=== PATIENT | female | born 1930 | race Caucasian/White ===

== ENCOUNTER 2017-11-27 17:42 | Inpatient (IN) ==
[2017-11-27 19:04] LABS: Basophils % 0.3 %; Eosinophils # 0.1 K/mcL (0.0-0.6); Eosinophils % 0.6 %; Hemoglobin 10.3 g/dL (11.5-15.4); Immature Granulocytes % 0.5 % (0-4); Lymphocytes % 19.8 %; Mean Corpuscular HGB Conc 29.4 g/dL (31.6-35.5); Mean Corpuscular Hemoglobin 23.2 pg (28.0-33.3); Mean Corpuscular Volume 78.8 fL (83.0-100.0); Mean Platelet Volume 10.4 fL (9.4-12.4); Monocytes # 1.1 K/mcL (0.0-1.3); Platelet Count 262 K/mcL (140-400); Red Blood Count 4.44 M/mcL (3.82-4.97); Red Cell Distribution Width 16.8 % (11.5-14.5); Segmented Neutrophils % 67.8 %
[2017-11-27 19:14] LABS: Albumin 3.4 g/dL (3.5-5.7); Bilirubin,Total 0.6 mg/dL (0.3-1.0); Calcium 8.9 mg/dL (8.6-10.3); Potassium 3.5 mEq/L (3.5-5.1)
[2017-11-27 19:20] LABS: Globulin 3.3 g/dL (2.4-3.5); Total Protein 6.7 g/dL (6.4-8.9)
[2017-11-27] MEDS ORDERED: methylPREDNISolone 125 MG/2 ML VIAL IVP ONE (22:02)
[2017-11-27] MEDS ORDERED: Ipratropium/Albuterol Neb 3 ML IH ONE (22:02)
[2017-11-27] MEDS ORDERED: 0.9 % Sodium Chloride 1,000 ML IVC ONE (23:04)
[2017-11-28] MEDS ORDERED: Levofloxacin 750 MG/150 ML 750 MG/150 ML BAG IVPB ONE (00:14)
--- NOTE | 2017-11-28 00:36 | Emergency Department Note ---
Disposition Clinical Impression: Shortness of breath, Cavitary lesion of lung, Pneumonia, Hypoxia Disposition: Admitted As Inpatient Condition: Good Referrals: Dar Bailon MD [Primary Care Provider] - SOB HPI - General Chief Complaint: ED Shortness of Breath/Dyspnea Stated Complaint: JESENIA/weakness/FLU LIKE SYMPTOMS Time Seen by Provider: 11/27/17 21:56 Source: patient Limitations: no limitations Nursing Notes Reviewed: Yes Vital Signs Reviewed: Yes - History of Present Illness 87-year-old female presents emergency room for cough and shortness of breath and wheezing. Onset was a few days ago. She states she has been coughing up clear sputum. Has felt feverish at times with chills. No significant chest pain. She states she is fatigued and worn down. She denies any vomiting or diarrhea. No belly pain. She states all of her symptoms are and her respiratory system. She does have a history of COPD from smoking years ago but does not longer smoke. She has an occasional inhaler that she uses at home but does not require home oxygen or any home nebulizers. She denies any lower leg pain or swelling or any long travels recently. - Related Data Home Medications Medication Instructions Recorded Confirmed Biotin 10 mg PO 1300 08/20/15 05/27/16 Cholecalciferol (Vitamin D3) 2,000 unit PO 1300 08/20/15 05/27/16 [Vitamin D3] Cinnamon Bark [Cinnamon] 4,000 mg PO 1300 08/20/15 05/27/16 Diltiazem [Cardizem] 60 mg PO Q8HR 08/20/15 05/27/16 Docosahexanoic Acid [ Dha] 200 mg PO 1300 08/20/15 05/27/16 Furosemide [Lasix] 40 mg PO BID 08/20/15 05/27/16 GlipiZIDE XL (24 HR) [Glucotrol XL] 5 mg PO BID 08/20/15 05/27/16 Isosorbide MONOnitrate (24 HR) 30 mg PO 1300 08/20/15 05/27/16 [Imdur] Metformin HCl [Fortamet] 500 mg PO 1800 08/20/15 05/27/16 Metoprolol [Lopressor] 25 mg PO BID 08/20/15 05/27/16 Oxybutynin [Ditropan] 5 mg PO TID 08/20/15 05/27/16 Quinapril HCl [Accupril] 20 mg PO QAM 08/20/15 05/27/16 Simvastatin [Zocor] 20 mg PO HS 08/20/15 05/27/16 Warfarin [Coumadin] 6 mg PO SUMOTUSA 08/20/15 05/27/16 Albuterol Sulfate [Albuterol 2 puff IH Q4HR PRN 05/27/16 05/27/16 Inhaler] Calcium Polycarbophil [Fibercon] 1,250 mg PO 1800 05/27/16 05/27/16 Cyanocobalamin (Vitamin B-12) 1,000 mcg SL 1300 05/27/16 05/27/16 [Vitamin B-12] Warfarin [Coumadin] 3 mg PO WETHFR 05/27/16 05/27/16 Previous Rx's Medication Instructions Recorded Acetaminophen [Tylenol] 1 - 2 tab PO Q6HR PRN #90 tablet 05/27/16 Allergies Allergy/AdvReac Type Severity Reaction Status Date / Time codeine Allergy SHAKES Verified 11/27/17 18:03 doxycycline Allergy Rash Verified 11/27/17 18:03 Oxycodone Allergy Hives Verified 11/27/17 18:03 propoxyphene Allergy Hives Verified 11/27/17 18:03 [From Darvocet-N] acetaminophen [From Percocet] AdvReac lost voice Verified 11/27/17 18:03 Penicillins AdvReac Hives Verified 11/27/17 18:03 Sulfa (Sulfonamide AdvReac Shakiness Verified 11/27/17 18:03 Antibiotics) All systems ED: reviewed and negative except as stated. Constitutional: Reports: fever, chills Eyes: Reports: as per HPI ENT ED: Reports: as per HPI Cardiovascular: Reports: dyspnea on exertion Respiratory: Reports: cough, wheezes Gastrointestinal: Reports: as per HPI Genitourinary: Reports: as per HPI Musculoskeletal: Reports: as per HPI Integumentary: Reports: as per HPI Neurological: Reports: as per HPI Psychiatric: Reports: as per HPI Endocrine: Reports: as per HPI Hematological/Lymphatic: Reports: as per HPI Allergic/Immunologic: Reports: as per HPI Past Medical History - Past Medical History Medical history: Reports: aortic aneurysm, arthritis, atrial fibrillation, cancer, CHF, COPD, coronary artery disease, diabetes, hyperlipidemia, hypertension Surgical history: Reports: appendectomy, cataract (bilateral 01/05/2008), orthopedic, other, pacemaker/AICD (08/06/2007), VIVI/BSO (1967), other ( Tonsillectomy 1938), vascular surgery (AAA repair 08/20/2015) Psychiatric history: Reports: no psych history - Social History Smoking Status: Never smoker Smokeless Tobacco Status: No Alcohol use: Reports: none Drug use: Reports: none Physical Exam - General Limitations: no limitations General appearance: alert - Head Head exam: atraumatic, normocephalic - ENT ENT exam: normal exam, normal oropharynx - Chest Chest inspection: Present: normal inspection, symmetric chest wall rise - Respiratory Respiratory exam: Present: respiratory distress, wheezes (Significant bilateral wheezes heard throughout all lung sommer.) - Cardiovascular Cardiovascular exam: Present: regular rate, normal rhythm, normal heart sounds - Abdominal Exam Abdominal exam: Present: soft, Non-Tender - Extremities Exam Extremities exam: Present: normal inspection, full ROM, normal capillary refill. Absent: tenderness - Back Exam Back exam: Present: normal inspection - Neurological Exam Neurological exam: Present: alert, oriented X3 - Psychiatric Psychiatric exam: Present: normal affect, normal mood - Skin Skin exam: Present: warm, dry, intact Course Vital Signs Temperature 98.7 F 11/27/17 18:03 Pulse Rate 65 11/27/17 18:03 Respiratory Rate 20 11/27/17 18:03 Blood Pressure 106/54 11/27/17 18:03 O2 Sat by Pulse Oximetry 91 11/27/17 18:03 Temperature 98.7 F 11/27/17 18:03 Pulse Rate 60 11/28/17 00:30 Respiratory Rate 20 11/28/17 00:30 Blood Pressure 140/63 11/28/17 00:30 O2 Sat by Pulse Oximetry 94 11/28/17 00:30 Oxygen Delivery Oxygen Delivery Nasal Cannula Shortness of Breath/Dyspnea - [facility] Narrative Medical decision making narrative: Workup reveals a cavitary lesion in the right upper lobe. Could be infectious versus inflammatory versus neoplastic. Patient has bilateral groundglass opacities also seen throughout the lungs. I feel based on her presentation it is best to treat her for an infectious process at this point. She has no evidence of any pulmonary embolus on the CT. I have ordered IV Levaquin due to her allergies. She is getting IV fluids as well as DuoNeb treatments. She was also given Solu-Medrol. I did speak with the hospitalist who accepted the patient. - Medical Records Medical records reviewed: Yes I reviewed the patient's medical records. - Lab Data Lab results reviewed: Yes I reviewed the patient's lab results. Result diagrams: 11/27/17 18:48 11/27/17 18:48 Lab Results 11/27/17 11/27/17 11/27/17 Range/Units 18:48 18:48 18:48 WBC 10.3 (4.3-11.1) K/mcL RBC 4.44 (3.82-4.97) M/mcL Hgb 10.3 L (11.5-15.4) g/dL Hct 35.0 L (35.3-44.9) % MCV 78.8 L (83.0-100.0) fL MCH 23.2 L (28.0-33.3) pg MCHC 29.4 L (31.6-35.5) g/dL RDW 16.8 H (11.5-14.5) % Plt Count 262 (140-400) K/mcL MPV 10.4 (9.4-12.4) fL Immature Gran % 0.5 (0-4) % Seg Neutrophils % 67.8 % Lymphocytes % 19.8 % Monocytes % 11.0 % Eosinophils % 0.6 % Basophils % 0.3 % Neutrophils # 7.0 (1.6-8.9) K/mcL Lymphocytes # 2.0 (0.6-4.6) K/mcL Monocytes # 1.1 (0.0-1.3) K/mcL Eosinophils # 0.1 (0.0-0.6) K/mcL Basophils # 0.0 (0.0-0.2) K/mcL D-Dimer (0-500) ng/mLFEU Sodium 134 L (136-145) mEq/L Potassium 3.5 (3.5-5.1) mEq/L Chloride 96 L (98-107) mEq/L Carbon Dioxide 31 H (23-29) mEq/L BUN 16 (8-23) mg/dL Creatinine 1.19 (0.60-1.20) mg/dL Est GFR ( Amer) 52 L (> 60) Est GFR (Non-Af Amer) 43 L (> 60) BUN/Creatinine Ratio 13 (6-26) Glucose 79 (70-105) mg/dL Calculated Osmolality 278 L (280-300) Calcium 8.9 (8.6-10.3) mg/dL Total Bilirubin 0.6 (0.3-1.0) mg/dL AST 43 H (13-39) Units/L ALT 38 (7-52) Units/L Alkaline Phosphatase 84 (34-104) Units/L Troponin I 0.03 (< 0.04) ng/mL Serum Total Protein 6.7 (6.4-8.9) g/dL Albumin 3.4 L (3.5-5.7) g/dL Globulin 3.3 (2.4-3.5) g/dL Albumin/Globulin Ratio 1.0 L (1.1-2.2) 11/27/17 Range/Units 22:16 WBC (4.3-11.1) K/mcL RBC (3.82-4.97) M/mcL Hgb (11.5-15.4) g/dL Hct (35.3-44.9) % MCV (83.0-100.0) fL MCH (28.0-33.3) pg MCHC (31.6-35.5) g/dL RDW (11.5-14.5) % Plt Count (140-400) K/mcL MPV (9.4-12.4) fL Immature Gran % (0-4) % Seg Neutrophils % % Lymphocytes % % Monocytes % % Eosinophils % % Basophils % % Neutrophils # (1.6-8.9) K/mcL Lymphocytes # (0.6-4.6) K/mcL Monocytes # (0.0-1.3) K/mcL Eosinophils # (0.0-0.6) K/mcL Basophils # (0.0-0.2) K/mcL D-Dimer 1713 H (0-500) ng/mLFEU Sodium (136-145) mEq/L Potassium (3.5-5.1) mEq/L Chloride (98-107) mEq/L Carbon Dioxide (23-29) mEq/L BUN (8-23) mg/dL Creatinine (0.60-1.20) mg/dL Est GFR ( Amer) (> 60) Est GFR (Non-Af Amer) (> 60) BUN/Creatinine Ratio (6-26) Glucose (70-105) mg/dL Calculated Osmolality (280-300) Calcium (8.6-10.3) mg/dL Total Bilirubin (0.3-1.0) mg/dL AST (13-39) Units/L ALT (7-52) Units/L Alkaline Phosphatase (34-104) Units/L Troponin I (< 0.04) ng/mL Serum Total Protein (6.4-8.9) g/dL Albumin (3.5-5.7) g/dL Globulin (2.4-3.5) g/dL Albumin/Globulin Ratio (1.1-2.2) - Radiology Data Radiology results reviewed: Yes I reviewed the patient's radiology results. - EKG Data EKG attestation: Yes I reviewed and interpreted this EKG. EKG results narrative: EKG shows a rate of 74. No sinus rhythm. Normal axis. MI interval 224. QRS 89. QTC 392. Critical Care Time Critical Care Time: Yes Total Critical Care Time: 35 Attestation: Critical care time spent and medical management of the patient's hypoxia
[2017-11-28] MEDS ORDERED: Ipratropium/Albuterol Neb 3 ML IH ONE (01:17)
--- NOTE | 2017-11-28 01:24 | Internal Med History&Physical ---
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 for follow Qualifiers: Pneumonia type: due to unspecified organism Laterality: right Lung location: upper lobe of lung Qualified Code(s): J18.1 - Lobar pneumonia, unspecified organism (3) Shortness of breath Current visit: Yes Status: Acute Patient actively wheezing on exam with some rhonchi was started on DuoNeb and Solu-Medrol (4) Atrial fibrillation Current visit: No Status: Chronic Qualifiers: Atrial fibrillation type: paroxysmal Qualified Code(s): I48.0 - Paroxysmal atrial fibrillation (5) Diabetes mellitus Current visit: No Status: Chronic Chronic continue on sliding scale and resume home medication Qualifiers: Diabetes mellitus type: type 2 Diabetes mellitus complication status: with circulatory complication Diabetes mellitus complication detail: with other circulatory complications Diabetes mellitus vermin exterminator insulin use: unspecified vermin exterminator insulin use status Qualified Code(s): E11.59 - Type 2 diabetes mellitus with other circulatory complications (6) Essential (primary) hypertension Current visit: No Status: Chronic Chronic and well controlled Internal Medicine - H&P: HPI Chief complaint: cough and sob Admitted From: Emergency Dept Plans for Post Hospital Care: Home History of present illness: Ms. Mejía is a 87 year old female Patient with history of COPD, hypertension, diabetes, atrial fibrillation, pacemaker, CAD, high cholesterol, patient presents to emergency room with a few days of shortness of breath cough and wheezing with fever and chills and that generalized fatigue. CTA of the chest in the emergency room shows 6 mm cavitary lesion in the right upper lobe suggestive of cavitary pneumonia patient admitted; started on antibiotic will also consult sales representative door to door. On exam patient is had bilateral rhonchi and some wheezing Past Med Surg Social Fam HX - Past Medical History Medical history: aortic aneurysm, arthritis, atrial fibrillation, cancer, CHF, COPD, coronary artery disease, diabetes, hyperlipidemia, hypertension Psychiatric history: no psych history - Past Surgical History Surgical History: appendectomy, cataract (bilateral 01/05/2008), orthopedic, other, pacemaker/AICD (08/06/2007), VIVI/BSO (1967), other (Tonsillectomy 1938), vascular surgery (AAA repair 08/20/2015) - Social History Smoking Status: Never smoker Smokeless Tobacco Status: No Alcohol use: none Drug use: none - Family History Mother Hx Family Cardiac Disorders: Yes ([place]) Hx Family Respiratory Disorders: Yes (asthma) Hx Family Cancer: Yes (breast) Father Family Member Ethnicity: Non- Sister Hx Family Cancer: Yes (kidney cancer) Internal Medicine - H&P: Meds Biotin 10 mg PO 1300 08/20/15 [History] Cholecalciferol (Vitamin D3) [Vitamin D3] 2,000 unit PO 1300 08/20/15 [History] Cinnamon Bark [Cinnamon] 4,000 mg PO 1300 08/20/15 [History] Diltiazem [Cardizem] 60 mg PO Q8HR 08/20/15 [History] Docosahexanoic Acid [ Dha] 200 mg PO 1300 08/20/15 [History] Furosemide [Lasix] 40 mg PO BID 08/20/15 [History] GlipiZIDE XL (24 HR) [Glucotrol XL] 5 mg PO BID 08/20/15 [History] Isosorbide MONOnitrate (24 HR) [Imdur] 30 mg PO 1300 08/20/15 [History] Metformin HCl [Fortamet] 500 mg PO 1800 08/20/15 [History] Metoprolol [Lopressor] 25 mg PO BID 08/20/15 [History] Oxybutynin [Ditropan] 5 mg PO TID 08/20/15 [History] Quinapril HCl [Accupril] 20 mg PO QAM 08/20/15 [History] Simvastatin [Zocor] 20 mg PO HS 08/20/15 [History] Warfarin [Coumadin] 6 mg PO SUMOTUSA 08/20/15 [History] Acetaminophen [Tylenol] 1 - 2 tab PO Q6HR PRN #90 tablet 05/27/16 [Rx] Albuterol Sulfate [Albuterol Inhaler] 2 puff IH Q4HR PRN 05/27/16 [History] Calcium Polycarbophil [Fibercon] 1,250 mg PO 1800 05/27/16 [History] Cyanocobalamin (Vitamin B-12) [Vitamin B-12] 1,000 mcg SL 1300 05/27/16 [History ] Warfarin [Coumadin] 3 mg PO WETHFR 05/27/16 [History] 3 Allergy/AdvReac Type Severity Reaction Status Date / Time codeine Allergy SHAKES Verified 11/27/17 18:03 doxycycline Allergy Rash Verified 11/27/17 18:03 Oxycodone Allergy Hives Verified 11/27/17 18:03 propoxyphene Allergy Hives Verified 11/27/17 18:03 [From Darvocet-N] acetaminophen [From Percocet] AdvReac lost voice Verified 11/27/17 18:03 Penicillins AdvReac Hives Verified 11/27/17 18:03 Sulfa (Sulfonamide AdvReac Shakiness Verified 11/27/17 18:03 Antibiotics) All Systems PM: A 10-system review of systems was performed and is negative for pertinent findings except as documented above in the HPI. - Constitutional Constitutional: chills, fatigue, fever(s) - EENT Eyes: no change in vision, no discharge, no pain, no photophobia Ears: no ear discharge, no ear pain, no tinnitus Nose, mouth and throat: no dysphagia, no nasal discharge, no neck pain, no sore throat - Cardiovascular Cardiovascular ROS IM: dyspnea, dyspnea on exertion - Respiratory Respiratory: dyspnea, dyspnea on exertion, wheezing - Gastrointestinal Gastrointestinal: no abdominal pain, no diarrhea, no hematemesis, no hematochezia, no melena, no nausea, no vomiting - Genitourinary Genitourinary: no change in urinary stream, no dysuria, no flank pain, no hematuria - Constitutional Vitals: Temp Pulse Resp BP Pulse Ox 98.7 F 60 20 140/63 94 11/27/17 18:03 11/28/17 00:30 11/28/17 00:30 11/28/17 00:30 11/28/17 00:30 General appearance: Present: mild distress - Eye Eye exam: Present: PERRL, conjuntiva pink, sclera anicteric Pupils: Present: PERRL - Neck Neck exam general surgery: Present: supple, trachea midline. Absent: lymphadenopathy - Respiratory Respiratory exam: Present: rhonchi, wheezes - Cardiovascular Cardiovascular exam: Present: RRR, +S1, +S2. Absent: diastolic murmur, gallop, rubs, systolic murmur - GI/Abdominal GI/Abdominal exam: Present: normal bowel sounds, soft, no peritoneal signs. Absent: distended, tenderness Internal Med - H&P Results - Labs CBC & Chem 7: 11/27/17 18:48 11/27/17 18:48
[2017-11-28] MEDS ORDERED: 0.9 % Sodium Chloride 1,000 ML IVC SCH (01:30)
[2017-11-28] MEDS ORDERED: Acetaminophen 325 MG TABLET PO PRN (01:30)
[2017-11-28] MEDS ORDERED: Naloxone 0.4 MG/ML INJ IVP PRN (01:30)
[2017-11-28] MEDS ORDERED: traMADol 50 MG TABLET PO PRN (01:30)
[2017-11-28] MEDS ORDERED: Ipratropium/Albuterol Neb 3 ML IH PRN (01:35)
[2017-11-28] MEDS ORDERED: D5% in Water 1,000 ML IVC PRN (01:36)
[2017-11-28] MEDS ORDERED: *HR* Dextrose 50 % in Water (Syg) 50 ML SYRINGE IVP PRN (01:36)
[2017-11-28] MEDS ORDERED: Dextrose Gel 15 GM/37.5 ML TUBE PO PRN ×2 (01:36)
[2017-11-28] MEDS: Ipratropium/Albuterol Neb 3 ML IH SCH ×6 (04:24→23:47)
[2017-11-28 04:31] LABS: Hematocrit 30.6 % (35.3-44.9); Mean Corpuscular HGB Conc 29.4 g/dL (31.6-35.5); Mean Corpuscular Hemoglobin 23.2 pg (28.0-33.3); Mean Corpuscular Volume 78.9 fL (83.0-100.0); Platelet Count 207 K/mcL (140-400); Red Blood Count 3.88 M/mcL (3.82-4.97); Red Cell Distribution Width 16.8 % (11.5-14.5)
[2017-11-28] MEDS: *HR* Enoxaparin 40 MG/0.4 ML SYRINGE SQ SCH (05:24)
[2017-11-28] MEDS ORDERED: MethylPREDNISolone 40 MG/ML VIAL IVP SCH (06:00)
[2017-11-28] MEDS ORDERED: Meropenem 1,000 MG in Water for inj. (sterile) 20 ML 10 ML IVP SCH (06:00)
[2017-11-28] MEDS ORDERED: Insulin LISPRO 300 UNITS/3 ML VIAL SQ SCH ×2 (07:30→21:00)
[2017-11-28] MEDS: *HR* GlipiZIDE XL (24 HR) 2.5 MG TABLET PO SCH ×2 (08:07→21:22)
[2017-11-28] MEDS: Insulin LISPRO 300 UNITS/3 ML VIAL SQ SCH ×3 (11:55→21:23)
[2017-11-28] MEDS: Isosorbide MONOnitrate (24 HR) 30 MG TAB.ER.24H PO SCH (12:02)
[2017-11-28] MEDS: Cholecalciferol (D-3) 1,000 UNIT TABLET PO SCH (12:02)
--- NOTE | 2017-11-28 12:43 | Pulmonology Consult Note ---
Date of Encounter: 11/28/17 Time of Encounter: 12:00 Assessment and Plan (1) COPD with exacerbation Current Visit: Yes Status: Acute She has history of COPD and I suspect this is a COPD exacerbation and she is on bronchodilator and I will add Symbicort to the treatment as well as increase her systemic steroid since patient still hypoxic and symptomatic. She will need outpatient follow-up. Deep oxygen saturation around 92%. (2) Cavitary lesion of lung Current Visit: Yes Status: Acute I have reviewed CT chest personally and cavitary nodule is very small obviously infection versus noninfectious etiologies in the differential diagnosis however clinically she is not stable for any bronchoscopy and also it is very small to biopsy. A follow-up CT chest is necessary in outpatient in 6-8 weeks. Patient has multiple allergies and discussed with the pharmacist regarding appropriate antibiotics. (3) Hypoxia Current Visit: Yes Status: Acute Patient on oxygen and titrate FiO2 to keep SPO2 around 92% Thank you for consultation we will follow-up. History of Present Illness Consult date: 11/28/17 Requesting physician: Hailey Wray Reason for consult: abnormal CXR/CT, other (Lung nodule) Chief complaint: Shortness of breath History of present illness: 7 very pleasant 87-year-old female with known history of COPD and remote history of smoking and she quit smoking more than 25 years ago and she is not using home oxygen but she is using rescue inhalers and she denies any history of TB in the past or a contact with TB patients. Patient stated that she is been having worsening shortness of breath for a few days with cough but not been able to bring up her sputum with some fever and chills and generalized fatigue. CT chest was done with a cavitary nodule and pulmonary consult with for that reason. Patient denies any other symptoms at this time. Past Med Surg Social Fam HX - Past Medical History Medical history: aortic aneurysm, arthritis, atrial fibrillation, CHF, COPD, coronary artery disease, diabetes, hyperlipidemia, hypertension Psychiatric history: no psych history - Past Surgical History Surgical History: cataract, hysterectomy, orthopedic, other, pacemaker/AICD, VIVI /BSO, other, vascular surgery - Social History Smoking Status: Former smoker Smokeless Tobacco Status: No Alcohol use: none Drug use: none - Family History Mother Age at : 63 Hx Family Cardiac Disorders: Yes ([place]) Hx Family Respiratory Disorders: Yes (asthma) Hx Family Cancer: Yes (breast) Father Family Member Ethnicity: Non- Cause of : 39 Sister Hx Family Cancer: Yes (kidney cancer) Medications and Allergies Biotin 10 mg PO 1300 08/20/15 [History] Cholecalciferol (Vitamin D3) [Vitamin D3] 2,000 unit PO 1300 08/20/15 [History] Cinnamon Bark [Cinnamon] 4,000 mg PO 1300 08/20/15 [History] Diltiazem [Cardizem] 60 mg PO Q8HR 08/20/15 [History] Furosemide [Lasix] 40 mg PO BID 08/20/15 [History] GlipiZIDE XL (24 HR) [Glucotrol XL] 5 mg PO BID 08/20/15 [History] Isosorbide MONOnitrate (24 HR) [Imdur] 30 mg PO 1300 08/20/15 [History] Oxybutynin [Ditropan] 5 mg PO TID 08/20/15 [History] Simvastatin [Zocor] 20 mg PO HS 08/20/15 [History] Warfarin [Coumadin] 6 mg PO SUMOTUSA 08/20/15 [History] Acetaminophen [Tylenol] 1 - 2 tab PO Q6HR PRN #90 tablet 05/27/16 [Rx] Albuterol Sulfate [Albuterol Inhaler] 2 puff IH Q4HR PRN 05/27/16 [History] Calcium Polycarbophil [Fibercon] 1,250 mg PO 1800 05/27/16 [History] Cyanocobalamin (Vitamin B-12) [Vitamin B-12] 1,000 mcg SL 1300 05/27/16 [History ] Warfarin [Coumadin] 3 mg PO WETHFR 05/27/16 [History] Metformin HCl [Metformin HCl ER] 500 mg PO DAILY 11/28/17 [History] Metoprolol [Lopressor] 50 mg PO BID 11/28/17 [History] 3 Allergy/AdvReac Type Severity Reaction Status Date / Time doxycycline Allergy Rash Verified 11/27/17 18:03 Oxycodone Allergy Hives Verified 11/27/17 18:03 propoxyphene Allergy Hives Verified 11/27/17 18:03 [From Darvocet-N] acetaminophen [From Percocet] AdvReac lost voice Verified 11/27/17 18:03 codeine AdvReac SHAKES Verified 11/28/17 07:19 Penicillins AdvReac Hives Verified 11/27/17 18:03 Sulfa (Sulfonamide AdvReac Shakiness Verified 11/27/17 18:03 Antibiotics) All Systems: A 10-system review of systems was performed and is negative for pertinent findings except as documented above in the HPI. Physical Examination Vital Signs: Vital Signs, Last 4 Hours Temp Pulse Resp BP Pulse Ox 11/28/17 12:04 98.1 F 139 16 102/51 92 11/28/17 11:36 18 94 General appearance: appears uncomfortable Eyes: nonicteric ENT: oropharynx dry Mallampati (class): 2 Neck: supple Effort: mildly labored Inspection: hyperextended Auscultation: bilateral: wheezes Percussion: bilateral: not dull Cardiovascular: irregular rhythm Gastrointestinal: normoactive bowel sounds, non-distended Extremities: no cyanosis normal mental status, non-focal exam mood appropriate Results - Laboratory Findings CBC and BMP: 11/28/17 03:37 11/27/17 18:48 PT/INR, D-dimer D-Dimer 1713 ng/mLFEU (0-500) H 11/27/17 22:16 Abnormal lab findings: Abnormal lab results Hgb 9.0 g/dL (11.5-15.4) L 11/28/17 03:37 Hct 30.6 % (35.3-44.9) L 11/28/17 03:37 MCV 78.9 fL (83.0-100.0) L 11/28/17 03:37 MCH 23.2 pg (28.0-33.3) L 11/28/17 03:37 MCHC 29.4 g/dL (31.6-35.5) L 11/28/17 03:37 RDW 16.8 % (11.5-14.5) H 11/28/17 03:37 D-Dimer 1713 ng/mLFEU (0-500) H 11/27/17 22:16 Sodium 134 mEq/L (136-145) L 11/27/17 18:48 Chloride 96 mEq/L (98-107) L 11/27/17 18:48 Carbon Dioxide 31 mEq/L (23-29) H 11/27/17 18:48 Est GFR ( Amer) 52 (> 60) L 11/27/17 18:48 Est GFR (Non-Af Amer) 43 (> 60) L 11/27/17 18:48 Calculated Osmolality 278 (280-300) L 11/27/17 18:48 AST 43 Units/L (13-39) H 11/27/17 18:48 Albumin 3.4 g/dL (3.5-5.7) L 11/27/17 18:48 Albumin/Globulin Ratio 1.0 (1.1-2.2) L 11/27/17 18:48 - Diagnostic Findings CT scan - chest: report reviewed, image reviewed - Clinical Findings Intake & Output: Intake & Output 11/27/17 11/28/17 11/28/17 23:59 07:59 15:59 Intake Total 25 / 25 Output Total 350 / 350 Balance -350 / -350 25 / 25 Weight 70.8 kg Consult Discharge Plan - Plan Referrals: Dar Bailon MD [Primary Care Provider] -
[2017-11-28] MEDS ORDERED: BIOTIN 10 MG PO SCH (13:00)
[2017-11-28] MEDS: methylPREDNISolone 125 MG/2 ML VIAL IVP SCH ×2 (14:36→21:22)
[2017-11-28] MEDS: Budesonide/Formoterol 160/4.5 MDI IH SCH ×2 (15:56→20:32)
[2017-11-28] MEDS: Cefepime HCl 1,000 MG in Water for inj. (sterile) 20 ML 10 ML IVP SCH (17:54)
[2017-11-28] MEDS ORDERED: Cefepime HCl 1,000 MG in Water for inj. (sterile) 10 ML IVP SCH (18:00)
--- NOTE | 2017-11-28 18:31 | Electrocardiograph Report ---
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
--- NOTE | 2017-11-28 19:17 | Event Note ---
Date of Encounter: 11/29/17 Time of Encounter: 11:00 Will continue duo nebs and Solu-Medrol for pneumonia. Continue supplemental oxygenation
[2017-11-29] MEDS: Ipratropium/Albuterol Neb 3 ML IH SCH ×6 (04:20→23:32)
[2017-11-29] MEDS: methylPREDNISolone 125 MG/2 ML VIAL IVP SCH ×3 (05:39→19:43)
[2017-11-29] MEDS: *HR* Enoxaparin 40 MG/0.4 ML SYRINGE SQ SCH (05:40)
[2017-11-29] MEDS: Cefepime HCl 1,000 MG in Water for inj. (sterile) 20 ML 10 ML IVP SCH (05:40)
[2017-11-29] MEDS: Ondansetron 4 MG/2 ML VIAL IVP PRN (07:35)
[2017-11-29] MEDS: Budesonide/Formoterol 160/4.5 MDI IH SCH ×2 (07:54→19:45)
[2017-11-29] MEDS ORDERED: Cefepime HCl 1,000 MG in Water for inj. (sterile) 20 ML 10 ML IVP ONE (08:26)
[2017-11-29] MEDS: *HR* GlipiZIDE XL (24 HR) 2.5 MG TABLET PO SCH (08:34)
[2017-11-29] MEDS: Insulin LISPRO 300 UNITS/3 ML VIAL SQ SCH ×3 (08:35→17:30)
[2017-11-29 08:57] LABS: BUN/Creatinine Ratio 21 (6-26); Blood Urea Nitrogen 21 mg/dL (8-23); Calcium 9.4 mg/dL (8.6-10.3); Carbon Dioxide 23 mEq/L (23-29); Chloride 89 mEq/L (98-107); Glucose 303 mg/dL (70-105); Osmolality,Calculated 272 (280-300); Potassium 3.2 mEq/L (3.5-5.1); Sodium 124 mEq/L (136-145); eGFR For African Americans > 60 (> 60); eGFR For Non-African Americans 52 (> 60)
[2017-11-29] MEDS ORDERED: Ibuprofen 400 MG TABLET PO PRN (09:00)
[2017-11-29 09:33] LABS: Hematocrit 31.9 % (35.3-44.9); Hemoglobin 9.5 g/dL (11.5-15.4); Lymphocytes % 5.6 %; Mean Corpuscular HGB Conc 29.8 g/dL (31.6-35.5); Mean Corpuscular Hemoglobin 22.8 pg (28.0-33.3); Mean Corpuscular Volume 76.7 fL (83.0-100.0); Mean Platelet Volume 11.1 fL (9.4-12.4); Monocytes % 2.7 %; Platelet Count 274 K/mcL (140-400); Red Blood Count 4.16 M/mcL (3.82-4.97); Segmented Neutrophils % 90.6 %
[2017-11-29 09:34] LABS: Basophils % 0.1 %; Lymphocytes # 1.1 K/mcL (0.6-4.6); Monocytes # 0.5 K/mcL (0.0-1.3)
[2017-11-29 09:44] LABS: Neutrophils # 17.7 K/mcL (1.6-8.9)
[2017-11-29] MEDS: Isosorbide MONOnitrate (24 HR) 30 MG TAB.ER.24H PO SCH (12:16)
[2017-11-29] MEDS: Cholecalciferol (D-3) 1,000 UNIT TABLET PO SCH (12:16)
[2017-11-29] MEDS: dilTIAZem HCl 60 MG TABLET PO SCH ×2 (12:26→17:30)
[2017-11-29 12:40] LABS: ABG Base Excess 4 mEq/L (-2 to 3); ABG HCO3 28 mEq/L (21-27); ABG Oxygen Saturation 93 % (95-98); ABG PCO2 36 mmHg (35-45); ABG PO2 62 mmHg (85-104); ABG TCO2 29 mEq/L (20-26)
[2017-11-29 14:46] LABS: INR 3.8; Prothrombin Time 41.9 Seconds (9.4-12.1)
[2017-11-29 15:33] LABS: ABG Base Excess 6 mEq/L (-2 to 3); ABG HCO3 28 mEq/L (21-27); ABG Oxygen Saturation 100 % (95-98); ABG PCO2 34 mmHg (35-45); ABG PH 7.53 pH Units (7.32-7.45); ABG PO2 155 mmHg (85-104); ABG TCO2 30 mEq/L (20-26); Blood Gas PEEP 6 cm H2O
[2017-11-29] MEDS ORDERED: Furosemide 40 MG/4 ML VIAL IVP ONE (16:36)
--- NOTE | 2017-11-29 17:07 | Internal Med Progress Note ---
Date of Encounter: 11/29/17 Time of Encounter: 11:00 - Assessment and plan (1) Acute respiratory failure with hypoxia Current Visit: Yes Status: Acute Assessment and plan: -Patient requiring supplemental oxygen and today was placed on BiPAP -Suspect secondary to COPD exacerbation secondary to bacterial infectious process -Continue supplemental oxygen and management of COPD exacerbation as below (2) COPD with exacerbation Current Visit: Yes Status: Acute Assessment and plan: -Suspect secondary to bacterial etiology; pneumonia is not ruled out -Patient now febrile with MAXIMUM TEMPERATURE of 102 overnight and now with markedly worsen leukocytosis -Will continue IV Solu-Medrol in addition to IV cefepime; infectious disease consulted and appreciate recommendations (3) Cavitary lesion of lung Current Visit: Yes Status: Acute Assessment and plan: -CT of the chest showed 6 mm cavitary lesion right upper lobe and patchy bilateral ground-glass opacities. -Pulmonology following and appreciate recommendations (4) Diabetes mellitus Current Visit: No Status: Chronic Assessment and plan: -Blood glucose slightly elevated; continue Humalog Qualifiers: Diabetes mellitus type: type 2 Diabetes mellitus complication status: with circulatory complication Diabetes mellitus complication detail: with other circulatory complications Diabetes mellitus chcf insulin use: unspecified terminal operations manager insulin use status Qualified Code(s): E11.59 - Type 2 diabetes mellitus with other circulatory complications (5) Essential (primary) hypertension Current Visit: No Status: Chronic Assessment and plan: -Controlled; continue Cardizem (6) DVT prophylaxis Current Visit: Yes Status: Acute Assessment and plan: Subcutaneous heparin - Subjective Interval history: Patient with respiratory distress this morning and was placed on BiPAP In addition patient also reported having a MAXIMUM TEMPERATURE of 102 this morning and now with markedly worsening leukocytosis - Constitutional Vitals: Temp Pulse Resp BP Pulse Ox 97.3 F L 73 18 132/64 90 11/29/17 16:30 11/29/17 16:30 11/29/17 16:39 11/29/17 16:30 11/29/17 16:39 General appearance: Present: mild distress, A&O X 3, no acute distress - Respiratory Respiratory exam: Present: accessory muscle use, CTAB, respiratory distress, rhonchi. Absent: wheezes - Cardiovascular Cardiovascular exam: Present: RRR, +S1, +S2. Absent: diastolic murmur, gallop, rubs, systolic murmur Internal Medicine: Result - Labs CBC & Chem 7: 11/29/17 08:24 11/29/17 08:24 Labs: Short CBC 11/29/17 Range/Units 08:24 WBC 19.5 H D (4.3-11.1) K/mcL Hgb 9.5 L (11.5-15.4) g/dL Hct 31.9 L (35.3-44.9) % Plt Count 274 (140-400) K/mcL Neutrophils # 17.7 H (1.6-8.9) K/mcL BMP 11/29/17 08:24 Sodium 124 L Potassium 3.2 L Chloride 89 L Carbon Dioxide 23 BUN 21 Creatinine 1.00 Glucose 303 H Calcium 9.4 - ABG Interpretation ABG results: ABG ABG pH 7.53 pH Units (7.32-7.45) H 11/29/17 15:25 ABG pCO2 34 mmHg (35-45) L 11/29/17 15:25 ABG pO2 155 mmHg (85-104) H D 11/29/17 15:25 ABG O2 Saturation 100 % (95-98) H 11/29/17 15:25 PT/INR, D-dimer PT 41.9 Seconds (9.4-12.1) H 11/29/17 14:21 D-Dimer 1713 ng/mLFEU (0-500) H 11/27/17 22:16 Consult Discharge Plan - Plan Referrals: Dar Bailon MD [Primary Care Provider] - 12/05/17 3:00 pm (Please follow up as schedule...)
[2017-11-29] MEDS ORDERED: Warfarin perPT PO PRN (18:00)
[2017-11-29] MEDS: Cefepime HCl 2,000 MG in Water for inj. (sterile) 20 ML 20 ML IVP SCH (19:42)
[2017-11-30] MEDS: dilTIAZem HCl 60 MG TABLET PO SCH ×4 (00:13→23:50)
[2017-11-30] MEDS: Insulin LISPRO 300 UNITS/3 ML VIAL SQ SCH ×5 (00:14→20:57)
[2017-11-30] MEDS: Ipratropium/Albuterol Neb 3 ML IH SCH ×6 (03:31→23:08)
[2017-11-30] MEDS: methylPREDNISolone 125 MG/2 ML VIAL IVP SCH ×3 (04:37→20:12)
[2017-11-30 05:22] LABS: INR 3.6; Prothrombin Time 39.6 Seconds (9.4-12.1)
[2017-11-30] MEDS ORDERED: *HR* Enoxaparin 30 MG/0.3 ML SYRINGE SQ SCH (06:00)
[2017-11-30] MEDS: Budesonide/Formoterol 160/4.5 MDI IH SCH ×2 (07:57→19:44)
[2017-11-30] MEDS: Cefepime HCl 2,000 MG in Water for inj. (sterile) 20 ML 20 ML IVP SCH ×2 (08:33→20:11)
--- NOTE | 2017-11-30 09:50 | Pulmonology Progress Note ---
Date of Encounter: 11/30/17 Time of Encounter: 08:00 Assessment and Plan (1) COPD with exacerbation Current Visit: Yes Status: Acute Patient is complaining of mostly nasal congestion which is making good difficult for her to breathe and nasal spray might be helpful. I still suspect there might be some underlying cardiac reasons mainly because patient has primarily respiratory alkalosis on her ABG and also diabetic control on her glucose since her sodium is artificially lower then normal because of hyperglycemia. Needs to replace electrolyte and diuresis as tolerated. Mucomyst might be helpful as well (2) Cavitary lesion of lung Current Visit: Yes Status: Acute Consider infectious disease consultation. (3) Hypoxia Current Visit: Yes Status: Acute Subjective Principal diagnosis: Shortness of breath Interval history: Patient feeling nasal congestion and still have difficulty to bring up sputum. Objective PUL Vital signs: Last Vital Signs Temp 97.6 F 11/30/17 07:28 Pulse 88 11/30/17 07:28 Resp 20 11/30/17 07:59 BP 135/52 11/30/17 07:28 Pulse Ox 90 11/30/17 07:59 General appearance: appears uncomfortable Eyes: nonicteric ENT: oropharynx moist Neck: supple, no lymphadenopathy Effort: mildly labored Auscultation: bilateral: rales Percussion: bilateral: not dull Cardiovascular: irregular rhythm Gastrointestinal: normoactive bowel sounds, non-distended Extremities: no cyanosis, edema normal mental status, non-focal exam Results - Laboratory Findings CBC and BMP: 11/29/17 08:24 11/29/17 08:24 ABG ABG pH 7.53 pH Units (7.32-7.45) H 11/29/17 15:25 ABG pCO2 34 mmHg (35-45) L 11/29/17 15:25 ABG pO2 155 mmHg (85-104) H D 11/29/17 15:25 ABG O2 Saturation 100 % (95-98) H 11/29/17 15:25 PT/INR, D-dimer PT 39.6 Seconds (9.4-12.1) H 11/30/17 04:56 D-Dimer 1713 ng/mLFEU (0-500) H 11/27/17 22:16 Abnormal lab findings: Abnormal lab results WBC 19.5 K/mcL (4.3-11.1) H D 11/29/17 08:24 Hgb 9.5 g/dL (11.5-15.4) L 11/29/17 08:24 Hct 31.9 % (35.3-44.9) L 11/29/17 08:24 MCV 76.7 fL (83.0-100.0) L 11/29/17 08:24 MCH 22.8 pg (28.0-33.3) L 11/29/17 08:24 MCHC 29.8 g/dL (31.6-35.5) L 11/29/17 08:24 RDW 17.0 % (11.5-14.5) H 11/29/17 08:24 Neutrophils # 17.7 K/mcL (1.6-8.9) H 11/29/17 08:24 PT 39.6 Seconds (9.4-12.1) H 11/30/17 04:56 D-Dimer 1713 ng/mLFEU (0-500) H 11/27/17 22:16 ABG pH 7.53 pH Units (7.32-7.45) H 11/29/17 15:25 ABG pCO2 34 mmHg (35-45) L 11/29/17 15:25 ABG pO2 155 mmHg (85-104) H D 11/29/17 15:25 ABG HCO3 28 mEq/L (21-27) H 11/29/17 15:25 ABG Total CO2 30 mEq/L (20-26) H 11/29/17 15:25 ABG O2 Saturation 100 % (95-98) H 11/29/17 15:25 ABG Base Excess 6 mEq/L (-2 to 3) H 11/29/17 15:25 Sodium 124 mEq/L (136-145) L 11/29/17 08:24 Potassium 3.2 mEq/L (3.5-5.1) L 11/29/17 08:24 Chloride 89 mEq/L (98-107) L 11/29/17 08:24 Est GFR (Non-Af Amer) 52 (> 60) L 11/29/17 08:24 Glucose 303 mg/dL (70-105) H 11/29/17 08:24 POC Glucose 204 (58-89) H 11/29/17 16:28 Calculated Osmolality 272 (280-300) L 11/29/17 08:24 AST 43 Units/L (13-39) H 11/27/17 18:48 Albumin 3.4 g/dL (3.5-5.7) L 11/27/17 18:48 Albumin/Globulin Ratio 1.0 (1.1-2.2) L 11/27/17 18:48 - Clinical Findings Intake & Output: Intake & Output 11/29/17 11/30/17 11/30/17 23:59 07:59 15:59 Intake Total 630 / 630 500 / 500 Output Total 1999 1300 / 1300 Balance -1980 / -1980 -670 / -670 500 / 500 Weight 70.67 kg Consult Discharge Plan - Plan Referrals: Dar Bailon MD [Primary Care Provider] - 12/05/17 3:00 pm (Please follow up as schedule...)
--- NOTE | 2017-11-30 09:58 | Infectious Disease Consult ---
Date of Encounter: 11/30/17 Time of Encounter: 09:40 Assessment and Plan (1) Sepsis Status: Acute Assessment and plan: 2 SIRS criteria met with leukocytosis and elevated temperature Currently due to unknown organism CXR showed new right upper lobe infiltrate Qualifiers: Sepsis type: sepsis due to unspecified organism Qualified Code(s): A41.9 - Sepsis, unspecified organism (2) Pneumonia Status: Acute Assessment and plan: CXR 11/29 shows new right upper lobe infiltrate Currently unknown organism Will obtain urine strep and legionella antigens continue cefepime for now, consider deescalation Qualifiers: Pneumonia type: due to unspecified organism Laterality: right Lung location: upper lobe of lung Qualified Code(s): J18.1 - Lobar pneumonia, unspecified organism (3) Cavitary lesion of lung Status: Acute Assessment and plan: Single cavitary lesion seen on CTA on 11/27 6mm in diameter, thick wall and without surrounding infection/inflammation Consider non-infectious etiologies for lesion Though, fungal causes and non-tuberculus mycobacterium are on the differential Given the clinical picture, recommend treating conservatively Agree with pulmonology for follow up CT in 6-8 weeks Infectious Disease HPI - Data of Consult Patient: new to practice Consult date: 11/30/17 Requesting Physician: Zachary Colunga Primary Care Provider: Dar Bailon MD - Consult Narrative Reason for consult: fever with leukocytosis and cavitary lesion History of present illness: Ms. Mejía is a 87 year old female COPD, hypertension, DM, atrial fibrillation, pacemaker, CAD, and hyperlipidemia presented to the ER on 11/28 after several days of fever, chills, and fatigue. ID was consulted on 11/29 due to the patient having continued fevers, leukocytosis, and finding of a cavitary lesion on Chest -CT. Upon presentation to the hospital she was pneumonia on CXR, but after a positive D-dimer resulted a CTA of her chest was obtained that showed a cavitary lesion in her chest measuring 6mm. She was given one dose of meropenem and levquin and a pulmonary consult was placed. She was started on cefepime on . She was seen by pulmonology and was determined to have an acute exascerbation of COPD, started on symbicort, and had her steroids increased. It was felt that the lesion was too small to biopsy and that she was not stable enough to undergo a biopsy. A follow-up CT was recommended for 6-8 weeks. On she developed became febrile and had greater hypoxia requiring placement of Bipap. The following da, she was doing well without bipap and was able to maintain oxygen saturation on oxymask. She reports that she lives at home with her daughter and son-in-law. She denies travelling recently, she denies sick contact, and denies contact with small children. 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 She denies having exposure to anyone with tuberculosis or time spent in or around [facility] facilities. She denies any unexplained fevers, night sweats, cough, or weight loss. She reports having 1 indoor cat that is up to date on its shots. She was a former smoker of about 1 ppd, but can't say when she quit. As of this morning she denies having any fevers since the one yesterday morning that was resolved with acetaminophen. She denies having had chills, diaphoresis chest pain, abdominal pain, sores in her mouth, dysuria, or hematuria. She does report that she has continued to be short of breath and having a cough that is non-productive. She feels as if she has a stuffy nose, constipation, and shakes. She also reports that she is having visual hallucinations that stated when she was first admitted. She denies having auditory hallucinations. CC: Zachary Colunga Past Med Surg Social Fam HX - Past Medical History Medical history: aortic aneurysm, arthritis, atrial fibrillation, CHF, COPD, coronary artery disease, diabetes, hyperlipidemia, hypertension Psychiatric history: no psych history - Past Surgical History Surgical History: cataract, hysterectomy, orthopedic, other, pacemaker/AICD, VIVI /BSO, other, vascular surgery - Social History Smoking Status: Former smoker Smokeless Tobacco Status: No Alcohol use: none Drug use: none - Family History Mother Age at : 63 Hx Family Cardiac Disorders: Yes (SC) Hx Family Respiratory Disorders: Yes (asthma) Hx Family Cancer: Yes (breast) Father Family Member Ethnicity: Non- Cause of : 39 Sister Hx Family Cancer: Yes (kidney cancer) Infectious Disease-CN:Meds Biotin 10 mg PO 1300 08/20/15 [History] Cholecalciferol (Vitamin D3) [Vitamin D3] 2,000 unit PO 1300 08/20/15 [History] Cinnamon Bark [Cinnamon] 4,000 mg PO 1300 08/20/15 [History] Diltiazem [Cardizem] 60 mg PO Q8HR 08/20/15 [History] Furosemide [Lasix] 40 mg PO BID 08/20/15 [History] GlipiZIDE XL (24 HR) [Glucotrol XL] 5 mg PO BID 08/20/15 [History] Isosorbide MONOnitrate (24 HR) [Imdur] 30 mg PO 1300 08/20/15 [History] Oxybutynin [Ditropan] 5 mg PO TID 08/20/15 [History] Simvastatin [Zocor] 20 mg PO HS 08/20/15 [History] Warfarin [Coumadin] 6 mg PO SUMOTUSA 08/20/15 [History] Acetaminophen [Tylenol] 1 - 2 tab PO Q6HR PRN #90 tablet 05/27/16 [Rx] Albuterol Sulfate [Albuterol Inhaler] 2 puff IH Q4HR PRN 05/27/16 [History] Calcium Polycarbophil [Fibercon] 1,250 mg PO 1800 05/27/16 [History] Cyanocobalamin (Vitamin B-12) [Vitamin B-12] 1,000 mcg SL 1300 05/27/16 [History ] Warfarin [Coumadin] 3 mg PO WETHFR 05/27/16 [History] Metformin HCl [Metformin HCl ER] 500 mg PO DAILY 11/28/17 [History] Metoprolol [Lopressor] 50 mg PO BID 11/28/17 [History] 3 Allergy/AdvReac Type Severity Reaction Status Date / Time doxycycline Allergy Rash Verified 11/27/17 18:03 Oxycodone Allergy Hives Verified 11/27/17 18:03 propoxyphene Allergy Hives Verified 11/27/17 18:03 [From [facility]] codeine AdvReac SHAKES Verified 11/28/17 07:19 Penicillins AdvReac Hives Verified 11/27/17 18:03 Sulfa (Sulfonamide AdvReac Shakiness Verified 11/27/17 18:03 Antibiotics) Exam - Constitutional Vitals: Temp Pulse Resp BP Pulse Ox 97.6 F 88 20 135/52 90 11/30/17 07:28 11/30/17 07:28 11/30/17 07:59 11/30/17 07:28 11/30/17 07:59 Infectious Disease CN: Results - Labs CBC & Chem 7: 11/30/17 10:18 11/30/17 10:18 Consult Discharge Plan - Plan Referrals: Dar Bailon MD [Primary Care Provider] - 12/05/17 3:00 pm (Please follow up as schedule...) - Attending Attestation I examined this patient and my medical decision-making was reviewed with the Resident Physician. I agree with the documented findings, disposition and treatment plan as described except to the extent set forth below. This is an addendum to original report dictated by resident physician. Please refer to residents note for full detail. Briefly patient is an 87-year-old woman who has an extensive past medical history mentioned below came in on 11/27/2017 complaining of cough, shortness of breath and wheezing. Patient states that her symptoms have been going on for a couple days prior to admission. Initially patient was stable but on 11/29/2017 patient WBC jumped to 19.5 thousand with 90% neutrophils and she spiked fever of 102.7 Fahrenheit. Patient had blood cultures obtained, flu antigen was obtained and it was negative and a chest x-ray was noted to show right upper lobe consolidation. Initially on admission patient did have CT scan which showed a small cavitary lesion. We were asked to evaluate the patient and make further recommendations. Currently patient laying in bed, family at bedside, she appears comfortable very pleasant. She denies any headache or URI symptoms. She does have some shortness of Breath and some cough and some pleuritic chest pain. No nausea or vomiting no diarrhea or constipation no urinary symptoms no other issues. Patient was a little bit anxious because she was worried about the cavitary lesion being cancer. Patient was started on empiric antibiotics including cefepime. Patient seems comfortable. At this point patient has sepsis secondary to pneumonia. As for the moment pneumonia not sure what the causative organism is. I would recommend getting a respiratory infectious panel and check urine for Legionella and pneumococcal antigen. For now we will continue the cefepime. As for the cavitary lung lesion need to discuss with pulmonary. I think infectious etiology is less likely and lower on my differential. 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 Patient only has traveled to [place] once in the summer. I expect to the patient that if this is none TB mycobacteria or a fungal infection then has not really urgent and we can do workup as an outpatient. In the meantime I will talk to pulmonary and see what the plan is. If they have a high index of suspicion for malignancy or noninfectious etiology. Continue cefepime duration of treatment depends on the clinical picture we will continue to follow. Monitor labs and for drug toxicity.
[2017-11-30 10:44] LABS: Basophils % 0.1 %; Hematocrit 32.4 % (35.3-44.9); Hemoglobin 9.9 g/dL (11.5-15.4); Immature Granulocytes % 2.1 % (0-4); Lymphocytes # 0.5 K/mcL (0.6-4.6); Lymphocytes % 2.8 %; Mean Corpuscular HGB Conc 30.6 g/dL (31.6-35.5); Mean Corpuscular Hemoglobin 23.2 pg (28.0-33.3); Mean Corpuscular Volume 75.9 fL (83.0-100.0); Mean Platelet Volume 10.8 fL (9.4-12.4); Monocytes # 0.4 K/mcL (0.0-1.3); Monocytes % 2.5 %; Neutrophils # 16.6 K/mcL (1.6-8.9); Platelet Count 265 K/mcL (140-400); Red Blood Count 4.27 M/mcL (3.82-4.97); Segmented Neutrophils % 92.5 %
[2017-11-30] MEDS: Ondansetron 4 MG/2 ML VIAL IVP PRN (10:52)
[2017-11-30] MEDS: Acetylcysteine 10% 2 ML INHSOL IH SCH ×3 (11:00→23:09)
[2017-11-30 11:14] LABS: BUN/Creatinine Ratio 21 (6-26); Blood Urea Nitrogen 19 mg/dL (8-23); Calcium 9.7 mg/dL (8.6-10.3); Carbon Dioxide 27 mEq/L (23-29); Chloride 91 mEq/L (98-107); Glucose 319 mg/dL (70-105); Osmolality,Calculated 281 (280-300); Potassium 3.2 mEq/L (3.5-5.1); Sodium 128 mEq/L (136-145); eGFR For African Americans > 60 (> 60); eGFR For Non-African Americans 58 (> 60)
[2017-11-30] MEDS: Cholecalciferol (D-3) 1,000 UNIT TABLET PO SCH (13:26)
[2017-11-30] MEDS: Isosorbide MONOnitrate (24 HR) 30 MG TAB.ER.24H PO SCH (13:26)
[2017-11-30] MEDS ORDERED: Tuberculin Skin Test (PPD) 5 TUB/0.1 ML VIAL ID ONE (17:45)
--- NOTE | 2017-11-30 18:23 | Internal Med Progress Note ---
Date of Encounter: 11/30/17 Time of Encounter: 11:00 - Assessment and plan (1) Acute respiratory failure with hypoxia Current Visit: Yes Status: Acute Assessment and plan: -Patient reports some improvement in shortness of breath this morning. -She is no longer requiring NIPPV continues to be on high flow oxygen. -Chest x-ray on 11/29/17 showed new right upper lobe consolidation -Echocardiogram on 11/30/17 showed LVEF of 65% with indeterminate diastolic function; borderline pulmonary hypertension noted -Pulmonology following and appreciate recommendations. (2) COPD with exacerbation Current Visit: Yes Status: Acute Assessment and plan: -Suspect secondary to pneumonia. -Will continue IV Solu-Medrol in addition to IV cefepime -Pulmonology consulted and appreciate recommendations (3) Cavitary lesion of lung Current Visit: Yes Status: Acute Assessment and plan: -CT of the chest showed 6 mm cavitary lesion right upper lobe and patchy bilateral ground-glass opacities. 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 She is no longer requiring NIPPV continues to be on high flow oxygen. She has been afebrile and leukocytosis slightly improving Chest x-ray on 11/29/17 showed new right upper lobe consolidation Echocardiogram on 11/30/17 showed LVEF of 65% with indeterminate diastolic function; borderline pulmonary hypertension noted Infectious disease consulted for additional recommendations. - Constitutional Vitals: Temp Pulse Resp BP Pulse Ox 97.6 F 73 20 137/67 93 11/30/17 15:19 11/30/17 15:19 11/30/17 16:21 11/30/17 15:19 11/30/17 16:21 General appearance: Present: mild distress, A&O X 3, no acute distress - Respiratory Respiratory exam: Present: CTAB. Absent: accessory muscle use, rales, rhonchi, wheezes - Cardiovascular Cardiovascular exam: Present: RRR, +S1, +S2. Absent: diastolic murmur, gallop, rubs, systolic murmur Internal Medicine: Result - Labs CBC & Chem 7: 11/30/17 10:18 11/30/17 10:18 Labs: Short CBC 11/30/17 Range/Units 10:18 WBC 17.9 H (4.3-11.1) K/mcL Hgb 9.9 L (11.5-15.4) g/dL Hct 32.4 L (35.3-44.9) % Plt Count 265 (140-400) K/mcL Neutrophils # 16.6 H (1.6-8.9) K/mcL BMP 11/30/17 10:18 Sodium 128 L Potassium 3.2 L Chloride 91 L Carbon Dioxide 27 BUN 19 Creatinine 0.92 Glucose 319 H Calcium 9.7 - ABG Interpretation ABG results: ABG ABG pH 7.53 pH Units (7.32-7.45) H 11/29/17 15:25 ABG pCO2 34 mmHg (35-45) L 11/29/17 15:25 ABG pO2 155 mmHg (85-104) H D 11/29/17 15:25 ABG O2 Saturation 100 % (95-98) H 11/29/17 15:25 PT/INR, D-dimer PT 39.6 Seconds (9.4-12.1) H 11/30/17 04:56 D-Dimer 1713 ng/mLFEU (0-500) H 11/27/17 22:16 - Impressions Impressions Echocardiogram 11/30/17 09:46 Impressions: LVEF 65%. Indeterminate diastolic function. RV is mildly dilated. Function is normal. Moderate mitral regurgitation. Mild tricuspid regurgitation. Borderline pulmonary hypertension. Atherosclerotic plaque noted in the ascending thoracic aorta. Left Ventricular Wall Motion: Rest Echo Findings All wall segments showed normal motion. Findings: Study Quality * Technically adequate exam. ECG Findings * Normal sinus rhythm. Left Ventricle * LVEF 65%. * Normal LV chamber size, wall thickness and function. * Indeterminate diastolic function. Right Ventricle * RV is mildly dilated. Function is normal. Left Atrium * Moderate-severely dilated left atrium. Right Atrium * Severely dilated right atrium. Aortic Valve * No aortic regurgitation. * Trileaflet aortic valve. * Mildly calcified and thickened aortic valve leaflets. * No aortic stenosis. Mitral Valve * Mild mitral annular calcification * No mitral stenosis. * Mildly calcified mitral valve leaflets. * Moderate mitral regurgitation. Tricuspid Valve * Tricuspid valve not well visualized. * Mild tricuspid regurgitation. * Estimated RA pressure is 3 mmHg. * Estimated RVSP is 34 mmHg. * Borderline pulmonary hypertension. Pulmonic Valve * Pulmonic valve not well visualized. * No pulmonic stenosis. * No pulmonic regurgitation. Aorta * Normally sized aortic root. * Ascending aorta is not well visualized. There does appear to be plaque present. Pulmonary Artery * Pulmonary artery not well visualized. Device lead * A device lead was visualized in the right atrium and right ventricle. Interatrial Septum * No evidence of PFO by color Doppler. Pericardium * There is no pericardial effusion present. IVC * Normal IVC dimensions and inspiratory collapse. Consult Discharge Plan - Plan Referrals: Dar Bailon MD [Primary Care Provider] - 12/05/17 3:00 pm (Please follow up as schedule...)
[2017-12-01 03:48] LABS: INR 3.1; Prothrombin Time 34.4 Seconds (9.4-12.1)
[2017-12-01] MEDS: Ipratropium/Albuterol Neb 3 ML IH SCH ×4 (04:11→12:11)
[2017-12-01] MEDS: Budesonide/Formoterol 160/4.5 MDI IH SCH ×3 (07:54→22:15)
[2017-12-01] MEDS: Insulin LISPRO 300 UNITS/3 ML VIAL SQ SCH ×4 (08:42→20:32)
[2017-12-01] MEDS: methylPREDNISolone 125 MG/2 ML VIAL IVP SCH ×3 (08:42→20:26)
[2017-12-01] MEDS: Cefepime HCl 2,000 MG in Water for inj. (sterile) 20 ML 20 ML IVP SCH ×2 (08:43→20:25)
[2017-12-01 10:35] LABS: Basophils % 0.2 %; Hematocrit 33.3 % (35.3-44.9); Immature Granulocytes % 3.8 % (0-4); Lymphocytes # 0.8 K/mcL (0.6-4.6); Lymphocytes % 4.5 %; Mean Corpuscular Hemoglobin 22.9 pg (28.0-33.3); Mean Corpuscular Volume 76.2 fL (83.0-100.0); Mean Platelet Volume 11.5 fL (9.4-12.4); Monocytes # 0.5 K/mcL (0.0-1.3); Monocytes % 2.8 %; Nucleated Red Blood Cells 0.1 /100 WBC (0); Platelet Count 291 K/mcL (140-400); Red Blood Count 4.37 M/mcL (3.82-4.97); Red Cell Distribution Width 17.1 % (11.5-14.5); Segmented Neutrophils % 88.7 %
[2017-12-01] MEDS: Acetylcysteine 10% 2 ML INHSOL IH SCH ×3 (10:36→22:18)
[2017-12-01 11:07] LABS: BUN/Creatinine Ratio 21 (6-26); Blood Urea Nitrogen 17 mg/dL (8-23); Calcium 10.3 mg/dL (8.6-10.3); Carbon Dioxide 27 mEq/L (23-29); Chloride 93 mEq/L (98-107); Glucose 251 mg/dL (70-105); Osmolality,Calculated 280 (280-300); Potassium 3.7 mEq/L (3.5-5.1); Sodium 130 mEq/L (136-145); eGFR For African Americans > 60 (> 60); eGFR For Non-African Americans > 60 (> 60)
[2017-12-01] MEDS: Isosorbide MONOnitrate (24 HR) 30 MG TAB.ER.24H PO SCH (13:12)
[2017-12-01] MEDS: Cholecalciferol (D-3) 1,000 UNIT TABLET PO SCH (13:12)
--- NOTE | 2017-12-01 14:36 | Cardiology Consult Note ---
Date of Encounter: 12/01/17 Time of Encounter: 14:00 Assessment and Plan (1) Acute respiratory failure with hypoxia Current Visit: Yes Status: Acute Per cardiology: -Admitted with acute resp. failure with hypoxia. -Management per primary service. (2) Atrial fibrillation Current Visit: No Status: Chronic Per cardiology: -Known history of PAF, on cardizem 60mg TID and coumadin at home. -Was SR on admission, now a.fib RVR. -CUrrently HRs 110s. -ON cardizem drip at 12.5mg/hour. -TTE with LVEF 65, moderate MR, mild TR, no segmental wall motion abnormalities. -Stress 2015 negative for ischemia or infarct. -Has pacemaker for history of tachybrady syndrome. Follows with [facility]. -Titrate cardizem drip for HR less than 100. -Will continue to monitor. Qualifiers: Atrial fibrillation type: paroxysmal Qualified Code(s): I48.0 - Paroxysmal atrial fibrillation Discussion w patient/family: The assessment and plan as outlined above was discussed with the patient who expressed understanding and agreement. All questions were answered. Thank you for involving us in the care of your patient. Please call with any questions. Discussed and reviewed with History of Present Illness Consult date: 12/01/17 Requesting physician: Zachary Colunga Consult reason: a.fib RVR Chief complaint: shortness of breath History of present illness: Ms. Mejía is a 87 year old female with a relevant past medical history of atrial fibrillation, HTN, DM, tachybrady syndrome s/p pacemaker, COPD, hyperlipidemia, AAA s/p stenting, CHF, CAD. Patient presented to [facility] with complaints of increased shortness of breath. Cardiology has been asked to see and evaluate patient for atrial fibrillation with RVR. Patient states she feels more short of breath when in atrial fibrillation. Past Med Surg Social Fam HX - Past Medical History Attestation: Yes The following information was validated with the patient. Source: patient, old records reviewed Medical history: aortic aneurysm, arthritis, atrial fibrillation, CHF, COPD, coronary artery disease, diabetes, hyperlipidemia, hypertension Psychiatric history: no psych history - Past Surgical History Surgical History: cataract, hysterectomy, orthopedic, other, pacemaker/AICD, VIVI /BSO, other, vascular surgery - Social History Smoking Status: Former smoker Smokeless Tobacco Status: No Alcohol use: none Drug use: none - Family History Mother Age at : 63 Hx Family Cardiac Disorders: Yes (SD) Hx Family Respiratory Disorders: Yes (asthma) Hx Family Cancer: Yes (breast) Father Family Member Ethnicity: Non- Cause of : 39 Sister Hx Family Cancer: Yes (kidney cancer) Medications and Allergies Biotin 10 mg PO 1300 08/20/15 [History] Cholecalciferol (Vitamin D3) [Vitamin D3] 2,000 unit PO 1300 08/20/15 [History] Cinnamon Bark [Cinnamon] 4,000 mg PO 1300 08/20/15 [History] Diltiazem [Cardizem] 60 mg PO Q8HR 08/20/15 [History] Furosemide [Lasix] 40 mg PO BID 08/20/15 [History] GlipiZIDE XL (24 HR) [Glucotrol XL] 5 mg PO BID 08/20/15 [History] Isosorbide MONOnitrate (24 HR) [Imdur] 30 mg PO 1300 08/20/15 [History] Oxybutynin [Ditropan] 5 mg PO TID 08/20/15 [History] Simvastatin [Zocor] 20 mg PO HS 08/20/15 [History] Warfarin [Coumadin] 6 mg PO SUMOTUSA 08/20/15 [History] Acetaminophen [Tylenol] 1 - 2 tab PO Q6HR PRN #90 tablet 05/27/16 [Rx] Albuterol Sulfate [Albuterol Inhaler] 2 puff IH Q4HR PRN 05/27/16 [History] Calcium Polycarbophil [Fibercon] 1,250 mg PO 1800 05/27/16 [History] Cyanocobalamin (Vitamin B-12) [Vitamin B-12] 1,000 mcg SL 1300 05/27/16 [History ] Warfarin [Coumadin] 3 mg PO WETHFR 05/27/16 [History] Metformin HCl [Metformin HCl ER] 500 mg PO DAILY 11/28/17 [History] Metoprolol [Lopressor] 50 mg PO BID 11/28/17 [History] 3 Allergy/AdvReac Type Severity Reaction Status Date / Time doxycycline Allergy Rash Verified 11/27/17 18:03 Oxycodone Allergy Hives Verified 11/27/17 18:03 propoxyphene Allergy Hives Verified 11/27/17 18:03 [From GeraldMyra] codeine AdvReac SHAKES Verified 11/28/17 07:19 Penicillins AdvReac Hives Verified 11/27/17 18:03 Sulfa (Sulfonamide AdvReac Shakiness Verified 11/27/17 18:03 Antibiotics) All Systems Review: A 10-system review of systems was performed and is negative for pertinent findings except as documented above in the HPI. - Cardiovascular Cardiovascular: as per HPI, dyspnea on exertion Physical Examination Vital Signs, Last 4 Hours Temp Pulse Resp BP Pulse Ox 12/01/17 12:15 138/68 12/01/17 10:36 97.6 F 134 14 117/53 91 General: Conversant, No Apparent Distress HEENT: Atraumatic, Normocephaly, Mucus Membranes Moist Neck: No JVD, Normal carotid pulses Cardiac: Normal S1 and S2, No Murmur, Other (Irregularly irregular ) Lungs: Other (Lung sounds with scattered rhonchi. ) Neuro: Alert and responsive, No focal deficits noted Abdomen: Soft, Non-Tender Skin: No rashes noted on visualized skin Musculoskeletal: No Chest Wall Tenderness Extremities: No Clubbing, No Cyanosis, No Edema, Normal Pulses Results 12/01/17 08:24 12/01/17 08:24 Lab Results Impressions Echocardiogram 11/30/17 09:46 Impressions: LVEF 65%. Indeterminate diastolic function. RV is mildly dilated. Function is normal. Moderate mitral regurgitation. Mild tricuspid regurgitation. Borderline pulmonary hypertension. Atherosclerotic plaque noted in the ascending thoracic aorta. Left Ventricular Wall Motion: Rest Echo Findings All wall segments showed normal motion. Findings: Study Quality * Technically adequate exam. ECG Findings * Normal sinus rhythm. Left Ventricle * LVEF 65%. * Normal LV chamber size, wall thickness and function. * Indeterminate diastolic function. Right Ventricle * RV is mildly dilated. Function is normal. Left Atrium * Moderate-severely dilated left atrium. Right Atrium * Severely dilated right atrium. Aortic Valve * No aortic regurgitation. * Trileaflet aortic valve. * Mildly calcified and thickened aortic valve leaflets. * No aortic stenosis. Mitral Valve * Mild mitral annular calcification * No mitral stenosis. * Mildly calcified mitral valve leaflets. * Moderate mitral regurgitation. Tricuspid Valve * Tricuspid valve not well visualized. * Mild tricuspid regurgitation. * Estimated RA pressure is 3 mmHg. * Estimated RVSP is 34 mmHg. * Borderline pulmonary hypertension. Pulmonic Valve * Pulmonic valve not well visualized. * No pulmonic stenosis. * No pulmonic regurgitation. Aorta * Normally sized aortic root. * Ascending aorta is not well visualized. There does appear to be plaque present. Pulmonary Artery * Pulmonary artery not well visualized. Device lead * A device lead was visualized in the right atrium and right ventricle. Interatrial Septum * No evidence of PFO by color Doppler. Pericardium * There is no pericardial effusion present. IVC * Normal IVC dimensions and inspiratory collapse. Active Medications Acetaminophen (Tylenol) 650 mg PO Q6HR PRN PRN Reason: Mild Pain/Fever Stop: 05/30/18 01:31 Last Admin: 11/29/17 08:52 Dose: 650 mg Acetylcysteine (Acetylcysteine 10%) 2 ml IH Q8HR [facility] Stop: 06/01/18 10:01 Last Admin: 12/01/17 10:36 Dose: Not Given Albuterol/Ipratropium (Duoneb) 3 ml IH [id number] PRN PRN Reason: Shortness Of Breath/Wheezing Stop: 05/30/18 01:36 Budesonide/Formoterol Fumarate (Symbicort) 2 puff IH BIDRESP [facility] Stop: 05/30/18 12:31 Last Admin: 12/01/17 10:37 Dose: Not Given Calcium Polycarbophil (Fibercon) 1,250 mg PO 1800 [facility] Stop: 05/30/18 18:01 Last Admin: 11/30/17 16:53 Dose: 1,250 mg Dextrose/Water (Dextrose 50% (Syg)) 25 ml IVP AD PRN PRN Reason: Hypoglycemia Stop: 05/30/18 01:37 Docusate Sodium (Colace) 100 mg PO BID [facility] Stop: 05/30/18 09:01 Last Admin: 12/01/17 08:45 Dose: 100 mg Glucagon (Glucagen) 1 mg IM ONCE PRN PRN Reason: Hypoglycemia Stop: 05/30/18 01:37 Glucose (Gluctose) 15 gm PO ONCE PRN PRN Reason: Hypoglycemia Stop: 05/30/18 01:37 Glucose (Gluctose) 30 gm PO ONCE PRN PRN Reason: Hypoglycemia Stop: 05/30/18 01:37 Dextrose (Dextrose 5%) 1,000 mls @ 100 mls/hr IVC .Q10H PRN PRN Reason: HYPOGLYCEMIA Stop: 05/30/18 01:37 Cefepime HCl 2,000 mg/ Sterile (Water) 20 mls @ 300 mls/hr IVP 0800,2000 [facility] Stop: 05/31/18 20:01 Last Admin: 12/01/17 08:43 Dose: 300 mls/hr Diltiazem HCl 125 mg/ Sodium (Chloride) 125 mls @ 5 mls/hr IVC .Q24H [facility]; 5 MG/ HR PRN Reason: Protocol Stop: 06/02/18 09:46 Last Titration: 12/01/17 14:37 Dose: 15 mg/hr, 15 mls/hr Ibuprofen (Motrin) 400 mg PO Q6HR PRN PRN Reason: FEVER/PAIN Stop: 05/31/18 09:01 Insulin Human Lispro (Humalog) 0 units SQ TIDAC [facility] PRN Reason: Protocol Stop: 05/30/18 07:31 Last Admin: 12/01/17 13:11 Dose: 10 units Insulin Human Lispro (Humalog) 0 units SQ HS [facility] PRN Reason: Protocol Stop: 05/30/18 21:01 Last Admin: 11/30/17 20:57 Dose: 5 units Isosorbide Mononitrate (Imdur) 30 mg PO 1300 [facility] Stop: 05/30/18 13:01 Last Admin: 12/01/17 13:12 Dose: 30 mg Levalbuterol HCl (Xopenex) 1.25 mg IH [id number] [facility] Stop: 06/02/18 12:31 Methylprednisolone (Solu-Medrol) 60 mg IVP Q8H [facility] Stop: 05/30/18 12:50 Last Admin: 12/01/17 13:12 Dose: 60 mg Naloxone HCl (Narcan) 0.4 mg IVP Q2MIN PRN PRN Reason: SEE COMMENTS Stop: 05/30/18 01:31 Ondansetron HCl (Zofran) 4 mg IVP Q8HR PRN PRN Reason: Nausea And Vomiting Stop: 05/30/18 01:31 Last Admin: 11/30/17 10:52 Dose: 4 mg Tramadol HCl (Ultram) 50 mg PO Q6HR PRN PRN Reason: Moderate Pain Stop: 05/30/18 01:31 Vitamin D (Vitamin D) 1,000 unit PO 1300 [facility] Stop: 05/30/18 13:01 Last Admin: 12/01/17 13:12 Dose: 1,000 unit Warfarin Sodium (Coumadin Perpt) 1 each PO DAILY@1800 PRN PRN Reason: SEE COMMENTS Stop: 05/31/18 18:01 Warfarin Sodium (Coumadin) 3 mg PO ONCE ONE Stop: 12/01/17 18:01 Laboratory Tests 09/06/17 12/01/17 12/01/17 07:15 02:58 08:24 WBC 18.0 H Hgb 10.0 L INR 3.1 Potassium Creatinine TSH 2.447 12/01/17 08:24 WBC Hgb INR Potassium 3.7 Creatinine 0.82 TSH - Imaging and Cardiology Chest Xray: report reviewed Echo: report reviewed - EKG Interpretation EKG results cardiology: personally reviewed (ECG with atrial fibrillation with RVR), other (Telemetry reviewed with average HR previous 12 hours noted to be 99 , atrial fibrillation. PVCs noted. CUrrently 110s at bedside. m) Consult Discharge Plan - Plan Referrals: Dar Bailon MD [Primary Care Provider] - 12/05/17 3:00 pm (Please follow up as schedule...)
[2017-12-01] MEDS: Levalbuterol Neb 1.25 MG/3 ML IH SCH ×3 (15:36→22:17)
[2017-12-01] MEDS ORDERED: *HR* Warfarin 3 MG TABLET PO ONE (18:00)
--- NOTE | 2017-12-01 19:30 | Internal Med Progress Note ---
Date of Encounter: 12/02/17 Time of Encounter: 11:00 - Assessment and plan (1) Acute respiratory failure with hypoxia Current Visit: Yes Status: Acute Assessment and plan: -Patient reports some improvement in shortness of breath this morning. -She is no longer requiring NIPPV continues to be on high flow oxygen. -Chest x-ray on 11/29/17 showed new right upper lobe consolidation -Echocardiogram on 11/30/17 showed LVEF of 65% with indeterminate diastolic function; borderline pulmonary hypertension noted -Pulmonology following and appreciate recommendations. (2) COPD with exacerbation Current Visit: Yes Status: Acute Assessment and plan: -Suspect secondary to pneumonia. -Will continue IV Solu-Medrol in addition to IV cefepime -Pulmonology consulted and appreciate recommendations (3) Cavitary lesion of lung Current Visit: Yes Status: Acute Assessment and plan: -CT of the chest showed 6 mm cavitary lesion right upper lobe and patchy bilateral ground-glass opacities. 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 She is no longer requiring NIPPV continues to be on high flow oxygen. She has been afebrile and leukocytosis slightly improving Chest x-ray on 11/29/17 showed new right upper lobe consolidation Echocardiogram on 11/30/17 showed LVEF of 65% with indeterminate diastolic function; borderline pulmonary hypertension noted Infectious disease consulted for additional recommendations. - Constitutional Vitals: Temp Pulse Resp BP Pulse Ox 97.6 F 110 18 121/68 94 12/01/17 18:37 12/01/17 18:37 12/01/17 18:37 12/01/17 18:37 12/01/17 18:37 General appearance: Present: mild distress, A&O X 3, no acute distress - Respiratory Respiratory exam: Present: CTAB. Absent: accessory muscle use, rales, rhonchi, wheezes Internal Medicine: Result - Labs CBC & Chem 7: 12/02/17 11:14 12/02/17 11:14 Labs: Short CBC 12/01/17 Range/Units 08:24 WBC 18.0 H (4.3-11.1) K/mcL Hgb 10.0 L (11.5-15.4) g/dL Hct 33.3 L (35.3-44.9) % Plt Count 291 (140-400) K/mcL Neutrophils # 16.0 H (1.6-8.9) K/mcL BMP 12/01/17 08:24 Sodium 130 L Potassium 3.7 Chloride 93 L Carbon Dioxide 27 BUN 17 Creatinine 0.82 Glucose 251 H Calcium 10.3 - ABG Interpretation ABG results: ABG ABG pH 7.53 pH Units (7.32-7.45) H 11/29/17 15:25 ABG pCO2 34 mmHg (35-45) L 11/29/17 15:25 ABG pO2 155 mmHg (85-104) H D 11/29/17 15:25 ABG O2 Saturation 100 % (95-98) H 11/29/17 15:25 PT/INR, D-dimer PT 34.4 Seconds (9.4-12.1) H 12/01/17 02:58 D-Dimer 1713 ng/mLFEU (0-500) H 11/27/17 22:16 Consult Discharge Plan - Plan Referrals: Dar Bailon MD [Primary Care Provider] - 12/05/17 3:00 pm (Please follow up as schedule...)
[2017-12-02] MEDS: Levalbuterol Neb 1.25 MG/3 ML IH SCH ×4 (03:47→22:26)
[2017-12-02 04:11] LABS: INR 2.9; Prothrombin Time 32.3 Seconds (9.4-12.1)
[2017-12-02] MEDS: methylPREDNISolone 125 MG/2 ML VIAL IVP SCH ×3 (04:48→21:12)
[2017-12-02] MEDS: Insulin LISPRO 300 UNITS/3 ML VIAL SQ SCH ×4 (08:51→21:12)
[2017-12-02] MEDS: Cefepime HCl 2,000 MG in Water for inj. (sterile) 20 ML 20 ML IVP SCH ×2 (08:51→21:11)
[2017-12-02] MEDS: Budesonide/Formoterol 160/4.5 MDI IH SCH ×2 (10:43→22:26)
[2017-12-02] MEDS: Acetylcysteine 10% 2 ML INHSOL IH SCH ×3 (10:43→22:26)
--- NOTE | 2017-12-02 11:13 | Cardiology Progress Note ---
Date of Encounter: 12/02/17 Time of Encounter: 09:00 Assessment and Plan (1) Acute respiratory failure with hypoxia Current Visit: Yes Status: Acute Per cardiology: -Admitted with acute resp. failure with hypoxia. -Management per primary service. (2) Atrial fibrillation Current Visit: No Status: Chronic Per cardiology: -Known history of PAF, on cardizem 60mg TID and coumadin at home. -Was SR on admission, now a.fib RVR. -Average HR previous 12 hours noted to be 101, however with any exertion patient 's HR increases to 110s. -ON cardizem drip at 15mg/hour. -TTE with LVEF 65, moderate MR, mild TR, no segmental wall motion abnormalities. -Stress 2014 negative for ischemia or infarct. -Has pacemaker for history of tachybrady syndrome. Follows with [facility]. -Will add low dose beta ignacia, was taking at home. -Continue cardizem drip. -Will continue to monitor. Qualifiers: Atrial fibrillation type: paroxysmal Qualified Code(s): I48.0 - Paroxysmal atrial fibrillation Discussion w patient/family: The assessment and plan as outlined above was discussed with the patient who expressed understanding and agreement. All questions were answered. Thank you for involving us in the care of your patient. Please call with any questions. Discussed and reviewed with Subjective Principal diagnosis: Shortness of breath Interval history: Patient sitting up on side of bed, eating breakfast. Patient states she feels much better today. Objective Vital Signs, Last 4 Hours Temp Pulse Resp BP Pulse Ox 12/02/17 07:56 98.0 F 104 14 126/64 92 General: Conversant, No Apparent Distress HEENT: Atraumatic, Normocephaly, Mucus Membranes Moist Neck: No JVD, Normal carotid pulses Cardiac: Normal S1 and S2, No Murmur, Other (Irregularly irregular) Lungs: Other (Lung sounds dimished throughout) Neuro: Alert and responsive, No focal deficits noted Abdomen: Soft, Non-Tender Skin: No rashes noted on visualized skin Musculoskeletal: No Chest Wall Tenderness Extremities: No Clubbing, No Cyanosis, No Edema, Normal Pulses Results 12/01/17 08:24 12/01/17 08:24 Lab Results Current Medications Acetaminophen (Tylenol) 650 mg PO Q6HR PRN PRN Reason: Mild Pain/Fever Stop: 05/30/18 01:31 Last Admin: 11/29/17 08:52 Dose: 650 mg Acetylcysteine (Acetylcysteine 10%) 2 ml IH Q8HR [facility] Stop: 06/01/18 10:01 Last Admin: 12/02/17 10:43 Dose: 2 ml Albuterol/Ipratropium (Duoneb) 3 ml IH [id number] PRN PRN Reason: Shortness Of Breath/Wheezing Stop: 05/30/18 01:36 Budesonide/Formoterol Fumarate (Symbicort) 2 puff IH BIDRESP [facility] Stop: 05/30/18 12:31 Last Admin: 12/02/17 10:43 Dose: 2 puff Calcium Polycarbophil (Fibercon) 1,250 mg PO 1800 [facility] Stop: 05/30/18 18:01 Last Admin: 12/01/17 17:26 Dose: 1,250 mg Dextrose/Water (Dextrose 50% (Syg)) 25 ml IVP AD PRN PRN Reason: Hypoglycemia Stop: 05/30/18 01:37 Docusate Sodium (Colace) 100 mg PO BID [facility] Stop: 05/30/18 09:01 Last Admin: 12/02/17 08:51 Dose: 100 mg Glucagon (Glucagen) 1 mg IM ONCE PRN PRN Reason: Hypoglycemia Stop: 05/30/18 01:37 Glucose (Gluctose) 15 gm PO ONCE PRN PRN Reason: Hypoglycemia Stop: 05/30/18 01:37 Glucose (Gluctose) 30 gm PO ONCE PRN PRN Reason: Hypoglycemia Stop: 05/30/18 01:37 Dextrose (Dextrose 5%) 1,000 mls @ 100 mls/hr IVC .Q10H PRN PRN Reason: HYPOGLYCEMIA Stop: 05/30/18 01:37 Cefepime HCl 2,000 mg/ Sterile (Water) 20 mls @ 300 mls/hr IVP 0800,2000 [facility] Stop: 05/31/18 20:01 Last Admin: 12/02/17 08:51 Dose: 300 mls/hr Diltiazem HCl 125 mg/ Sodium (Chloride) 125 mls @ 5 mls/hr IVC .Q24H [facility]; 5 MG/ HR PRN Reason: Protocol Stop: 06/02/18 09:46 Last Admin: 12/02/17 04:48 Dose: 15 mg/hr, 15 mls/hr Ibuprofen (Motrin) 400 mg PO Q6HR PRN PRN Reason: FEVER/PAIN Stop: 05/31/18 09:01 Insulin Human Lispro (Humalog) 0 units SQ TIDAC [facility] PRN Reason: Protocol Stop: 05/30/18 07:31 Last Admin: 12/02/17 08:51 Dose: 14 units Insulin Human Lispro (Humalog) 0 units SQ HS [facility] PRN Reason: Protocol Stop: 05/30/18 21:01 Last Admin: 12/01/17 20:32 Dose: 7 units Isosorbide Mononitrate (Imdur) 30 mg PO 1300 [facility] Stop: 05/30/18 13:01 Last Admin: 12/01/17 13:12 Dose: 30 mg Levalbuterol HCl (Xopenex) 1.25 mg IH [id number] [facility] Stop: 06/02/18 12:31 Last Admin: 12/02/17 10:43 Dose: 1.25 mg Methylprednisolone (Solu-Medrol) 60 mg IVP Q8H [facility] Stop: 05/30/18 12:50 Last Admin: 12/02/17 04:48 Dose: 60 mg Metoprolol Tartrate (Lopressor) 25 mg PO BID [facility] Stop: 06/03/18 11:16 Naloxone HCl (Narcan) 0.4 mg IVP Q2MIN PRN PRN Reason: SEE COMMENTS Stop: 05/30/18 01:31 Ondansetron HCl (Zofran) 4 mg IVP Q8HR PRN PRN Reason: Nausea And Vomiting Stop: 05/30/18 01:31 Last Admin: 11/30/17 10:52 Dose: 4 mg Tramadol HCl (Ultram) 50 mg PO Q6HR PRN PRN Reason: Moderate Pain Stop: 05/30/18 01:31 Vitamin D (Vitamin D) 1,000 unit PO 1300 [facility] Stop: 05/30/18 13:01 Last Admin: 12/01/17 13:12 Dose: 1,000 unit Warfarin Sodium (Coumadin Perpt) 1 each PO DAILY@1800 PRN PRN Reason: SEE COMMENTS Stop: 05/31/18 18:01 Warfarin Sodium (Coumadin) 3 mg PO 1800 [facility] Stop: 12/02/17 18:01 Laboratory Tests 12/02/17 03:34 INR 2.9 - Imaging and Cardiology Chest Xray: report reviewed Echo: report reviewed - EKG Interpretation EKG results cardiology: other (Telemetry reviewed with average HR previous 12 hours noted to be 101, atrial fibrillation. PVCs noted.) Consult Discharge Plan - Plan Referrals: Dar Bailon MD [Primary Care Provider] - 12/05/17 3:00 pm (Please follow up as schedule...)
[2017-12-02 11:27] LABS: Basophils # 0.1 K/mcL (0.0-0.2); Basophils % 0.2 %; Hematocrit 31.3 % (35.3-44.9); Hemoglobin 9.5 g/dL (11.5-15.4); Lymphocytes # 0.9 K/mcL (0.6-4.6); Lymphocytes % 4.2 %; Mean Corpuscular HGB Conc 30.4 g/dL (31.6-35.5); Mean Corpuscular Hemoglobin 23.1 pg (28.0-33.3); Mean Platelet Volume 10.8 fL (9.4-12.4); Monocytes # 0.5 K/mcL (0.0-1.3); Monocytes % 2.4 %; Neutrophils # 18.8 K/mcL (1.6-8.9); Nucleated Red Blood Cells 0.2 /100 WBC (0); Platelet Count 298 K/mcL (140-400); Red Blood Count 4.12 M/mcL (3.82-4.97); Red Cell Distribution Width 17.3 % (11.5-14.5); Segmented Neutrophils % 89.2 %
[2017-12-02 11:49] LABS: BUN/Creatinine Ratio 31 (6-26); Blood Urea Nitrogen 26 mg/dL (8-23); Calcium 10.3 mg/dL (8.6-10.3); Carbon Dioxide 28 mEq/L (23-29); Chloride 95 mEq/L (98-107); Glucose 359 mg/dL (70-105); Osmolality,Calculated 289 (280-300); Potassium 4.2 mEq/L (3.5-5.1); Sodium 130 mEq/L (136-145); eGFR For African Americans > 60 (> 60); eGFR For Non-African Americans > 60 (> 60)
[2017-12-02] MEDS: Isosorbide MONOnitrate (24 HR) 30 MG TAB.ER.24H PO SCH (12:32)
[2017-12-02] MEDS: Cholecalciferol (D-3) 1,000 UNIT TABLET PO SCH (12:32)
[2017-12-02] MEDS ORDERED: *HR* Warfarin 3 MG TABLET PO ONE (18:00)
--- NOTE | 2017-12-02 18:06 | Internal Med Progress Note ---
Date of Encounter: 12/02/17 Time of Encounter: 11:00 - Assessment and plan (1) Acute respiratory failure with hypoxia Current Visit: Yes Status: Acute Assessment and plan: -Patient reports improvement in shortness of breath this morning. She is no longer requiring NIPPV and currently being weaned down on oxygen supplementation She has been afebrile and leukocytosis slightly improving Chest x-ray on 11/29/17 showed new right upper lobe consolidation Echocardiogram on 11/30/17 showed LVEF of 65% with indeterminate diastolic function; borderline pulmonary hypertension noted Infectious disease and pulmonology following for additional recommendations. (2) COPD with exacerbation Current Visit: Yes Status: Acute Assessment and plan: -Suspect secondary to pneumonia. -Will continue IV Solu-Medrol in addition to IV cefepime -Pulmonology consulted and appreciate recommendations (3) Cavitary lesion of lung Current Visit: Yes Status: Acute Assessment and plan: -CT of the chest showed 6 mm cavitary lesion right upper lobe and patchy bilateral ground-glass opacities. -Pulmonology following and appreciate recommendations (4) Hyponatremia Current Visit: Yes Status: Acute Assessment and plan: -Patient's sodium on admission 134 and today 128 -Will continue to monitor (5) Diabetes mellitus Current Visit: No Status: Chronic Assessment and plan: -Blood glucose slightly elevated; continue Humalog Qualifiers: Diabetes mellitus type: type 2 Diabetes mellitus complication status: with circulatory complication Diabetes mellitus complication detail: with other circulatory complications Diabetes mellitus group home insulin use: unspecified group home insulin use status Qualified Code(s): E11.59 - Type 2 diabetes mellitus with other circulatory complications (6) Essential (primary) hypertension Current Visit: No Status: Chronic Assessment and plan: -Controlled; continue Cardizem (7) Atrial fibrillation with RVR Current Visit: Yes Status: Acute Assessment and plan: Patient also with atrial fibrillation with RVR Cardiology following recommendations to continue Cardizem drip and 2 at patient' s low-dose beta ignacia (8) DVT prophylaxis Current Visit: Yes Status: Acute Assessment and plan: Subcutaneous heparin - Subjective Interval history: Patient reports improvement in shortness of breath this morning. She is no longer requiring NIPPV and currently being weaned down on oxygen supplementation She has been afebrile and leukocytosis slightly improving Chest x-ray on 11/29/17 showed new right upper lobe consolidation Echocardiogram on 11/30/17 showed LVEF of 65% with indeterminate diastolic function; borderline pulmonary hypertension noted Infectious disease and pulmonology following for additional recommendations. Patient also with atrial fibrillation with RVR and cardiology following recommendations to continue Cardizem drip and 2 at patient's low-dose beta ignacia - Constitutional Vitals: Temp Pulse Resp BP Pulse Ox 97.9 F 92 16 132/70 93 12/02/17 14:50 12/02/17 15:50 12/02/17 16:35 12/02/17 15:50 12/02/17 16:35 General appearance: Present: mild distress, A&O X 3, no acute distress - Respiratory Respiratory exam: Present: CTAB. Absent: accessory muscle use, rales, rhonchi, wheezes - Cardiovascular Cardiovascular exam: Present: RRR, +S1, +S2. Absent: diastolic murmur, gallop, rubs, systolic murmur Internal Medicine: Result - Labs CBC & Chem 7: 12/02/17 11:14 12/02/17 11:14 Labs: Short CBC 12/02/17 Range/Units 11:14 WBC 21.1 H (4.3-11.1) K/mcL Hgb 9.5 L (11.5-15.4) g/dL Hct 31.3 L (35.3-44.9) % Plt Count 298 (140-400) K/mcL Neutrophils # 18.8 H (1.6-8.9) K/mcL BMP 12/02/17 11:14 Sodium 130 L Potassium 4.2 Chloride 95 L Carbon Dioxide 28 BUN 26 H Creatinine 0.85 Glucose 359 H Calcium 10.3 - ABG Interpretation ABG results: ABG ABG pH 7.53 pH Units (7.32-7.45) H 11/29/17 15:25 ABG pCO2 34 mmHg (35-45) L 11/29/17 15:25 ABG pO2 155 mmHg (85-104) H D 11/29/17 15:25 ABG O2 Saturation 100 % (95-98) H 11/29/17 15:25 PT/INR, D-dimer PT 32.3 Seconds (9.4-12.1) H 12/02/17 03:34 D-Dimer 1713 ng/mLFEU (0-500) H 11/27/17 22:16 Consult Discharge Plan - Plan Referrals: Dar Bailon MD [Primary Care Provider] - 12/05/17 3:00 pm (Please follow up as schedule...)
[2017-12-02 19:19] LABS: Adenovirus Not Detected (Not Detect); Bordetella Pertussis Not Detected (Not Detect); Chlamydophila pneumoniae Not Detected (Not Detect); Coronavirus 229E Not Detected (Not Detect); Coronavirus HKU1 Not Detected (Not Detect); Coronavirus NL63 Not Detected (Not Detect); Coronavirus OC43 Not Detected (Not Detect); Human Metapneumovirus Not Detected (Not Detect); Human Rhinovirus/Enterovirus Not Detected (Not Detect); Influenza A Subtype 2009 H1 Not Detected (Not Detect); Influenza A Untypeable Not Detected (Not Detect); Influenza B Not Detected (Not Detect); Mycoplasma pneumoniae Not Detected (Not Detect); Parainfluenza Virus 1 Not Detected (Not Detect); Parainfluenza Virus 2 Not Detected (Not Detect); Parainfluenza Virus 3 Not Detected (Not Detect); Parainfluenza Virus 4 Not Detected (Not Detect); Respiratory Syncytial Virus Not Detected (Not Detect)
[2017-12-03] MEDS: Levalbuterol Neb 1.25 MG/3 ML IH SCH ×4 (04:07→21:30)
[2017-12-03] MEDS: methylPREDNISolone 125 MG/2 ML VIAL IVP SCH ×3 (05:14→21:14)
[2017-12-03 05:19] LABS: INR 2.9; Prothrombin Time 31.5 Seconds (9.4-12.1)
[2017-12-03 08:20] LABS: Basophils % 0.1 %; Hematocrit 29.9 % (35.3-44.9); Hemoglobin 8.7 g/dL (11.5-15.4); Immature Granulocytes % 3.9 % (0-4); Lymphocytes % 4.8 %; Mean Corpuscular HGB Conc 29.1 g/dL (31.6-35.5); Mean Corpuscular Hemoglobin 22.7 pg (28.0-33.3); Mean Corpuscular Volume 78.1 fL (83.0-100.0); Mean Platelet Volume 10.9 fL (9.4-12.4); Monocytes # 0.5 K/mcL (0.0-1.3); Monocytes % 2.2 %; Neutrophils # 18.9 K/mcL (1.6-8.9); Nucleated Red Blood Cells 0.3 /100 WBC (0); Platelet Count 293 K/mcL (140-400); Red Blood Count 3.83 M/mcL (3.82-4.97); Red Cell Distribution Width 17.4 % (11.5-14.5)
[2017-12-03] MEDS: Cefepime HCl 2,000 MG in Water for inj. (sterile) 20 ML 20 ML IVP SCH ×2 (08:27→21:13)
[2017-12-03] MEDS: Insulin LISPRO 300 UNITS/3 ML VIAL SQ SCH ×4 (08:32→21:14)
[2017-12-03 08:48] LABS: BUN/Creatinine Ratio 39 (6-26); Blood Urea Nitrogen 32 mg/dL (8-23); Calcium 10.1 mg/dL (8.6-10.3); Carbon Dioxide 28 mEq/L (23-29); Chloride 99 mEq/L (98-107); Glucose 271 mg/dL (70-105); Osmolality,Calculated 288 (280-300); Potassium 4.9 mEq/L (3.5-5.1); Sodium 131 mEq/L (136-145); eGFR For African Americans > 60 (> 60); eGFR For Non-African Americans > 60 (> 60)
--- NOTE | 2017-12-03 10:23 | Cardiology Progress Note ---
Date of Encounter: 12/03/17 Time of Encounter: 08:30 Assessment and Plan (1) Acute respiratory failure with hypoxia Current Visit: Yes Status: Acute Per cardiology: -Admitted with acute resp. failure with hypoxia. -Management per primary service. (2) Atrial fibrillation Current Visit: No Status: Chronic Per cardiology: -Known history of PAF, on cardizem 60mg TID and coumadin at home. -Was SR on admission, now a.fib -Average HR previous 12 hours noted to be 87, atrial fibrillation. -ON cardizem drip at 15mg/hour. On metoprolol 25mg BID. -TTE with LVEF 65, moderate MR, mild TR, no segmental wall motion abnormalities. -Stress 2014 negative for ischemia or infarct. -Has pacemaker for history of tachybrady syndrome. Follows with [facility]. -Will started cardizem CD 360mg daily. First dose now. -Will discontinue cardizem drip 2 hours after oral dose. -Cardiology will sign off and will follow in outpatient setting. Follow up set. Qualifiers: Atrial fibrillation type: paroxysmal Qualified Code(s): I48.0 - Paroxysmal atrial fibrillation Discussion w patient/family: The assessment and plan as outlined above was discussed with the patient who expressed understanding and agreement. All questions were answered. Thank you for involving us in the care of your patient. Please call with any questions. Discussed and reviewed with Subjective Principal diagnosis: Shortness of breath Interval history: Patient states breathing is much better today. Objective Vital Signs, Last 4 Hours Temp Pulse Resp BP Pulse Ox 12/03/17 07:52 98.1 F 92 17 123/72 88 General: Conversant, No Apparent Distress HEENT: Atraumatic, Normocephaly, Mucus Membranes Moist Neck: No JVD, Normal carotid pulses Cardiac: Normal S1 and S2, No Murmur, Other (Irregularly irregular) Lungs: Other (Lung sounds coarse throughout) Neuro: Alert and responsive, No focal deficits noted Abdomen: Soft, Non-Tender Skin: No rashes noted on visualized skin Musculoskeletal: No Chest Wall Tenderness Extremities: No Clubbing, No Cyanosis, No Edema, Normal Pulses Results 12/03/17 04:32 12/03/17 04:32 Lab Results Active Medications Acetaminophen (Tylenol) 650 mg PO Q6HR PRN PRN Reason: Mild Pain/Fever Stop: 05/30/18 01:31 Last Admin: 11/29/17 08:52 Dose: 650 mg Acetylcysteine (Acetylcysteine 10%) 2 ml IH Q8HR [facility]CEPCION Stop: 06/01/18 10:01 Last Admin: 12/02/17 22:26 Dose: 2 ml Albuterol/Ipratropium (Duoneb) 3 ml IH [id number] PRN PRN Reason: Shortness Of Breath/Wheezing Stop: 05/30/18 01:36 Budesonide/Formoterol Fumarate (Symbicort) 2 puff IH BIDRESP [facility] Stop: 05/30/18 12:31 Last Admin: 12/02/17 22:26 Dose: 2 puff Calcium Polycarbophil (Fibercon) 1,250 mg PO 1800 [facility]PC[facility] Stop: 05/30/18 18:01 Last Admin: 12/02/17 18:07 Dose: 1,250 mg Dextrose/Water (Dextrose 50% (Syg)) 25 ml IVP AD PRN PRN Reason: Hypoglycemia Stop: 05/30/18 01:37 Diltiazem HCl (Cardizem Cd) 360 mg PO DAILY [facility] Stop: 06/04/18 10:31 Docusate Sodium (Colace) 100 mg PO BID PRN; Protocol PRN Reason: Constipation Stop: 06/03/18 19:11 Last Admin: 12/03/17 08:26 Dose: 100 mg Glucagon (Glucagen) 1 mg IM ONCE PRN PRN Reason: Hypoglycemia Stop: 05/30/18 01:37 Glucose (Gluctose) 15 gm PO ONCE PRN PRN Reason: Hypoglycemia Stop: 05/30/18 01:37 Glucose (Gluctose) 30 gm PO ONCE PRN PRN Reason: Hypoglycemia Stop: 05/30/18 01:37 Dextrose (Dextrose 5%) 1,000 mls @ 100 mls/hr IVC .Q10H PRN PRN Reason: HYPOGLYCEMIA Stop: 05/30/18 01:37 Cefepime HCl 2,000 mg/ Sterile (Water) 20 mls @ 300 mls/hr IVP 0800,2000 [facility] Stop: 05/31/18 20:01 Last Admin: 12/03/17 08:27 Dose: 300 mls/hr Diltiazem HCl 125 mg/ Sodium (Chloride) 125 mls @ 5 mls/hr IVC .Q24H CONCEPCION; 5 MG/ HR PRN Reason: Protocol Stop: 06/02/18 09:46 Last Admin: 12/03/17 06:41 Dose: 15 mg/hr, 15 mls/hr Ibuprofen (Motrin) 400 mg PO Q6HR PRN PRN Reason: FEVER/PAIN Stop: 05/31/18 09:01 Insulin Human Lispro (Humalog) 0 units SQ TIDAC [facility]CEPCION PRN Reason: Protocol Stop: 05/30/18 07:31 Last Admin: 12/03/17 08:32 Dose: 18 units Insulin Human Lispro (Humalog) 0 units SQ HS CONCEPCION PRN Reason: Protocol Stop: 05/30/18 21:01 Last Admin: 12/02/17 21:12 Dose: 6 units Isosorbide Mononitrate (Imdur) 30 mg PO 1300 [facility] Stop: 05/30/18 13:01 Last Admin: 12/02/17 12:32 Dose: 30 mg Levalbuterol HCl (Xopenex) 1.25 mg IH [id number] [facility] Stop: 06/02/18 12:31 Last Admin: 12/03/17 04:07 Dose: 1.25 mg Methylprednisolone (Solu-Medrol) 60 mg IVP Q8H [facility] Stop: 05/30/18 12:50 Last Admin: 12/03/17 05:14 Dose: 60 mg Metoprolol Tartrate (Lopressor) 25 mg PO BID [facility] Stop: 06/03/18 11:16 Last Admin: 12/03/17 08:25 Dose: 25 mg Naloxone HCl (Narcan) 0.4 mg IVP Q2MIN PRN PRN Reason: SEE COMMENTS Stop: 05/30/18 01:31 Ondansetron HCl (Zofran) 4 mg IVP Q8HR PRN PRN Reason: Nausea And Vomiting Stop: 05/30/18 01:31 Last Admin: 11/30/17 10:52 Dose: 4 mg Tramadol HCl (Ultram) 50 mg PO Q6HR PRN PRN Reason: Moderate Pain Stop: 05/30/18 01:31 Vitamin D (Vitamin D) 1,000 unit PO 1300 [facility] Stop: 05/30/18 13:01 Last Admin: 12/02/17 12:32 Dose: 1,000 unit Warfarin Sodium (Coumadin Perpt) 1 each PO DAILY@1800 PRN PRN Reason: SEE COMMENTS Stop: 05/31/18 18:01 Laboratory Tests 12/03/17 12/03/17 12/03/17 04:32 04:32 04:32 WBC 21.2 H Hgb 8.7 L INR 2.9 Potassium 4.9 Creatinine 0.83 - Imaging and Cardiology Chest Xray: report reviewed Echo: report reviewed - EKG Interpretation EKG results cardiology: other (Telemetry reviewed with average HR previous 12 hours noted to be 87, atrial fibrillation. PVCs noted.) Consult Discharge Plan - Plan Referrals: Dar Bailon MD [Primary Care Provider] - 12/05/17 3:00 pm (Please follow up as schedule...)
--- NOTE | 2017-12-03 10:55 | Electrocardiograph Report ---
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
[2017-12-03] MEDS: Acetylcysteine 10% 2 ML INHSOL IH SCH ×3 (11:18→21:30)
[2017-12-03] MEDS: Budesonide/Formoterol 160/4.5 MDI IH SCH ×2 (11:18→21:30)
[2017-12-03] MEDS: Diltiazem CD (24hr) 180 MG CAPSULE PO SCH (12:24)
[2017-12-03] MEDS: Isosorbide MONOnitrate (24 HR) 30 MG TAB.ER.24H PO SCH (12:25)
[2017-12-03] MEDS: Cholecalciferol (D-3) 1,000 UNIT TABLET PO SCH (12:25)
[2017-12-03] MEDS ORDERED: *HR* Warfarin 3 MG TABLET PO ONE (18:00)
--- NOTE | 2017-12-03 19:27 | Internal Med Progress Note ---
Date of Encounter: 12/03/17 Time of Encounter: 11:00 - Assessment and plan (1) Acute respiratory failure with hypoxia Current Visit: Yes Status: Acute Assessment and plan: -Patient reports some improvement in shortness of breath this morning. -She is no longer requiring NIPPV continues to be on high flow oxygen. -Chest x-ray on 11/29/17 showed new right upper lobe consolidation -Echocardiogram on 11/30/17 showed LVEF of 65% with indeterminate diastolic function; borderline pulmonary hypertension noted -Pulmonology following and appreciate recommendations. (2) COPD with exacerbation Current Visit: Yes Status: Acute Assessment and plan: -Suspect secondary to pneumonia. -Will continue IV Solu-Medrol in addition to IV cefepime -Pulmonology consulted and appreciate recommendations (3) Cavitary lesion of lung Current Visit: Yes Status: Acute Assessment and plan: -CT of the chest showed 6 mm cavitary lesion right upper lobe and patchy bilateral ground-glass opacities. -Pulmonology following and appreciate recommendations (4) Hyponatremia Current Visit: Yes Status: Acute Assessment and plan: -Patient's sodium on admission 134 and today 128 -Will continue to monitor (5) Diabetes mellitus Current Visit: No Status: Chronic Assessment and plan: -Blood glucose slightly elevated; continue Humalog Qualifiers: Diabetes mellitus type: type 2 Diabetes mellitus complication status: with circulatory complication Diabetes mellitus complication detail: with other circulatory complications Diabetes mellitus penitentiary insulin use: unspecified production packager insulin use status Qualified Code(s): E11.59 - Type 2 diabetes mellitus with other circulatory complications (6) Essential (primary) hypertension Current Visit: No Status: Chronic Assessment and plan: -Controlled; continue Cardizem (7) Atrial fibrillation with RVR Current Visit: Yes Status: Acute Assessment and plan: -Patient started on Cardizem drip -cardiology consulted and appreciate recommendations (8) DVT prophylaxis Current Visit: Yes Status: Acute Assessment and plan: Subcutaneous heparin - Subjective Interval history: Patient reports some improvement in shortness of breath this morning. She is no longer requiring NIPPV continues to be on high flow oxygen. She has been afebrile and leukocytosis slightly improving Chest x-ray on 11/29/17 showed new right upper lobe consolidation Echocardiogram on 11/30/17 showed LVEF of 65% with indeterminate diastolic function; borderline pulmonary hypertension noted Infectious disease consulted for additional recommendations. - Constitutional Vitals: Temp Pulse Resp BP Pulse Ox 98.1 F 85 18 117/67 92 12/03/17 19:18 12/03/17 19:18 12/03/17 19:18 12/03/17 19:18 12/03/17 19:18 General appearance: Present: mild distress, A&O X 3, no acute distress - Respiratory Respiratory exam: Present: CTAB. Absent: accessory muscle use, rales, rhonchi, wheezes - Cardiovascular Cardiovascular exam: Present: RRR, +S1, +S2. Absent: diastolic murmur, gallop, rubs, systolic murmur Internal Medicine: Result - Labs CBC & Chem 7: 12/03/17 04:32 12/03/17 04:32 Labs: Short CBC 12/03/17 Range/Units 04:32 WBC 21.2 H (4.3-11.1) K/mcL Hgb 8.7 L (11.5-15.4) g/dL Hct 29.9 L (35.3-44.9) % Plt Count 293 (140-400) K/mcL Neutrophils # 18.9 H (1.6-8.9) K/mcL BMP 12/03/17 04:32 Sodium 131 L Potassium 4.9 Chloride 99 Carbon Dioxide 28 BUN 32 H Creatinine 0.83 Glucose 271 H Calcium 10.1 - ABG Interpretation ABG results: ABG ABG pH 7.53 pH Units (7.32-7.45) H 11/29/17 15:25 ABG pCO2 34 mmHg (35-45) L 11/29/17 15:25 ABG pO2 155 mmHg (85-104) H D 11/29/17 15:25 ABG O2 Saturation 100 % (95-98) H 11/29/17 15:25 PT/INR, D-dimer PT 31.5 Seconds (9.4-12.1) H 12/03/17 04:32 D-Dimer 1713 ng/mLFEU (0-500) H 11/27/17 22:16 Consult Discharge Plan - Plan Referrals: Dar Bailon MD [Primary Care Provider] - 12/05/17 3:00 pm (Please follow up as schedule...)
[2017-12-04] MEDS: Levalbuterol Neb 1.25 MG/3 ML IH SCH ×4 (03:58→22:07)
[2017-12-04] MEDS: methylPREDNISolone 125 MG/2 ML VIAL IVP SCH ×2 (05:21→14:01)
[2017-12-04 05:54] LABS: INR 2.6
[2017-12-04] MEDS: Cefepime HCl 2,000 MG in Water for inj. (sterile) 20 ML 20 ML IVP SCH ×2 (08:32→21:23)
[2017-12-04] MEDS: Diltiazem CD (24hr) 180 MG CAPSULE PO SCH (08:32)
[2017-12-04] MEDS: Insulin LISPRO 300 UNITS/3 ML VIAL SQ SCH ×4 (08:33→21:24)
[2017-12-04] MEDS: Acetylcysteine 10% 2 ML INHSOL IH SCH ×4 (08:50→22:07)
[2017-12-04 11:13] LABS: Basophils # 0.1 K/mcL (0.0-0.2); Basophils % 0.2 %; Hematocrit 32.5 % (35.3-44.9); Hemoglobin 9.7 g/dL (11.5-15.4); Immature Granulocytes % 4.6 % (0-4); Lymphocytes # 0.7 K/mcL (0.6-4.6); Lymphocytes % 3.4 %; Mean Corpuscular HGB Conc 29.8 g/dL (31.6-35.5); Mean Corpuscular Hemoglobin 23.4 pg (28.0-33.3); Mean Corpuscular Volume 78.5 fL (83.0-100.0); Mean Platelet Volume 10.7 fL (9.4-12.4); Monocytes # 0.4 K/mcL (0.0-1.3); Monocytes % 1.9 %; Neutrophils # 18.4 K/mcL (1.6-8.9); Nucleated Red Blood Cells 0.2 /100 WBC (0); Platelet Count 335 K/mcL (140-400); Red Blood Count 4.14 M/mcL (3.82-4.97); Segmented Neutrophils % 89.9 %
[2017-12-04] MEDS: Budesonide/Formoterol 160/4.5 MDI IH SCH ×2 (11:32→22:06)
[2017-12-04 11:42] LABS: BUN/Creatinine Ratio 37 (6-26); Blood Urea Nitrogen 37 mg/dL (8-23); Calcium 10.1 mg/dL (8.6-10.3); Carbon Dioxide 25 mEq/L (23-29); Chloride 97 mEq/L (98-107); Glucose 432 mg/dL (70-105); Osmolality,Calculated 297 (280-300); Potassium 4.5 mEq/L (3.5-5.1); Sodium 130 mEq/L (136-145); eGFR For African Americans > 60 (> 60); eGFR For Non-African Americans 53 (> 60)
--- NOTE | 2017-12-04 13:13 | Infectious Disease Progress No ---
Date of Encounter: 12/04/17 Time of Encounter: 09:40 - Assessment and Plan (1) Sepsis Current Visit: Yes Status: Acute Currently has 2 SIRS criteria with continued tachycardia and leukocytosis CXR 11/29 showed new upper right lobe consolidation Strep pneumo and legionella antigens negative blood cultures /2 on 11/28 negative Flu A and B negative Current causative organism unclear Qualifiers: Sepsis type: sepsis due to unspecified organism Qualified Code(s): A41.9 - Sepsis, unspecified organism (2) Pneumonia Current Visit: Yes Status: Acute CXR on 11/29 showed new upper right lobe infiltrate S. pneumo and legionella antigens negative Flu A & B antigens negative RIP negative Will consider de-escalation of antibiotics Obtain sputum culture, if possible Will repeat CXR for now continue cefepime until repeat CXR is done might switch to levofloxacin Qualifiers: Pneumonia type: due to unspecified organism Laterality: right Lung location: upper lobe of lung Qualified Code(s): J18.1 - Lobar pneumonia, unspecified organism (3) Cavitary lesion of lung Current Visit: Yes Status: Acute Single cavitary lesion seen on CTA on 11/27 6mm in diameter, thick wall and without surrounding infection/inflammation Consider non-infectious etiologies for lesion Though, fungal causes and non-tuberculus mycobacterium are on the differential Given the clinical picture, recommend treating conservatively Agree with pulmonology for follow up CT in 6-8 weeks - Subjective Interval history: Patient reports feeling overall well, without having any fevers, chills, or diaphoresis. She does report having continued shortness of breath. She states that the feeling of nausea that she had before has gone away and that she is more able to to bring mucus up when she coughs. She states that over the past couple of days it has become more thin. She also reports having some constipation. She has continued to be afebrile and her HR has been in the high 80s to low 90s. Her oxygen saturation will drop into the mid-eighties if she is talking too much. She has had a stable WBC around 21, though has continued to be on the same dose of solu-medrol (60mg TID). Infect Dis PN-Objective Data - Labs CBC & Chem 7: 12/04/17 10:35 12/04/17 10:35 Labs: Laboratory Results - last 24 hr 12/03/17 12/03/17 12/03/17 07:53 12:04 20:52 WBC RBC Hgb Hct MCV MCH MCHC RDW Plt Count MPV Immature Gran % Seg Neutrophils % Lymphocytes % Monocytes % Eosinophils % Basophils % Neutrophils # Lymphocytes # Monocytes # Eosinophils # Basophils # Nucleated RBCs/100 WBC PT INR Sodium Potassium Chloride Carbon Dioxide BUN Creatinine Est GFR ( Amer) Est GFR (Non-Af Amer) BUN/Creatinine Ratio Glucose POC Glucose 414 H* 333 H 341 H Calculated Osmolality Calcium 12/04/17 12/04/17 12/04/17 04:52 07:54 10:35 WBC 20.4 H RBC 4.14 Hgb 9.7 L Hct 32.5 L MCV 78.5 L MCH 23.4 L MCHC 29.8 L RDW 18.0 H Plt Count 335 MPV 10.7 Immature Gran % 4.6 H Seg Neutrophils % 89.9 Lymphocytes % 3.4 Monocytes % 1.9 Eosinophils % 0.0 Basophils % 0.2 Neutrophils # 18.4 H Lymphocytes # 0.7 Monocytes # 0.4 Eosinophils # 0.0 Basophils # 0.1 Nucleated RBCs/100 WBC 0.2 H PT 29.0 H INR 2.6 Sodium Potassium Chloride Carbon Dioxide BUN Creatinine Est GFR ( Amer) Est GFR (Non-Af Amer) BUN/Creatinine Ratio Glucose POC Glucose 319 H Calculated Osmolality Calcium 12/04/17 10:35 WBC RBC Hgb Hct MCV MCH MCHC RDW Plt Count MPV Immature Gran % Seg Neutrophils % Lymphocytes % Monocytes % Eosinophils % Basophils % Neutrophils # Lymphocytes # Monocytes # Eosinophils # Basophils # Nucleated RBCs/100 WBC PT INR Sodium 130 L Potassium 4.5 Chloride 97 L Carbon Dioxide 25 BUN 37 H Creatinine 0.99 Est GFR ( Amer) > 60 Est GFR (Non-Af Amer) 53 L BUN/Creatinine Ratio 37 H Glucose 432 H POC Glucose Calculated Osmolality 297 Calcium 10.1 Cultures: Cultures 11/30/17 23:00 Legionella Antigen - Final Urine,Clean Catch Streptococcus pneumoniae Antigen (M - Final Serology 12/02/17 Range/Units 18:29 Chlamy pneumoniae PCR Not Detected (Not Detect) Adenovirus (PCR) Not Detected (Not Detect) B. pertussis DNA (PCR) Not Detected (Not Detect) B.parapertussis DNA PCR Not Detected (Not Detect) Coronavirus OC43 (PCR) Not Detected (Not Detect) Coronavirus HKU1 (PCR) Not Detected (Not Detect) Coronavirus 229E (PCR) Not Detected (Not Detect) Coronavirus NL63 (PCR) Not Detected (Not Detect) Human Metapneumovir PCR Not Detected (Not Detect) Influenza A (H1) PCR Not Detected (Not Detect) Influ A (H1N1/09) PCR Not Detected (Not Detect) Influenza A (H3) PCR Not Detected (Not Detect) Influenza A Untype (PCR) Not Detected (Not Detect) Influenza Type B (PCR) Not Detected (Not Detect) M.pneumoniae DNA (PCR) Not Detected (Not Detect) Parainfluenza 1 (PCR) Not Detected (Not Detect) Parainfluenza 2 (PCR) Not Detected (Not Detect) Parainfluenza 3 (PCR) Not Detected (Not Detect) Parainfluenza 4 (PCR) Not Detected (Not Detect) RSV (PCR) Not Detected (Not Detect) Entero/Rhino (PCR) Not Detected (Not Detect) Exam - Constitutional Vitals: Temp Pulse Resp BP Pulse Ox 97.4 F L 89 16 148/74 93 12/04/17 12:45 12/04/17 12:45 12/04/17 12:45 12/04/17 12:45 12/04/17 12:45 - Additional findings Additional findings: General: Cooperative, pleasant, no acute distress, alert and oriented 3, answers questions appropriately, oxygen saturations present with conversation HEENT: Normocephalic, atraumatic, trachea midline, Conjunctiva pink, sclera anicteric, oral mucosa dry, dry saliva versus exudates present Respiratory: No accessory muscle usage, clear to auscultation bilaterally, no wheezes/rhonchi/rales appreciated Cardiovascular: Irregular, S1 and S2 present, no murmurs/rubs/gallops/clicks appreciated GI/abdominal: Nondistended, nontender, soft, normal bowel sounds, no peritoneal signs Extremities: no pedal edema appreciated, warm, lower extremity pulses palpable and symmetrical Neurological: Alert and oriented 3, no facial droop, no focal deficits Skin: Dry, intact, normal color Consult Discharge Plan - Plan Referrals: Dar Bailon MD [Primary Care Provider] - 12/05/17 3:00 pm (Please follow up as schedule...) - Attending Attestation I examined this patient and my medical decision-making was reviewed with the Resident Physician. I agree with the documented findings, disposition and treatment plan as described except to the extent set forth below.
[2017-12-04] MEDS: Cholecalciferol (D-3) 1,000 UNIT TABLET PO SCH (14:02)
[2017-12-04] MEDS: Isosorbide MONOnitrate (24 HR) 30 MG TAB.ER.24H PO SCH (14:02)
[2017-12-04] MEDS: MethylPREDNISolone 40 MG/ML VIAL IVP SCH (16:55)
--- NOTE | 2017-12-04 17:06 | Internal Med Progress Note ---
Date of Encounter: 12/04/17 Time of Encounter: 11:00 - Assessment and plan (1) Acute respiratory failure with hypoxia Current Visit: Yes Status: Acute Assessment and plan: -Patient reports some improvement in shortness of breath this morning. -She continues to require supplemental oxygenation however -Chest x-ray on 11/29/17 showed new right upper lobe consolidation; management for pneumonia as below -Echocardiogram on 11/30/17 showed LVEF of 65% with indeterminate diastolic function; borderline pulmonary hypertension noted -Pulmonology following and appreciate recommendations. (2) Pneumonia Current Visit: Yes Status: Acute Assessment and plan: -Chest x-ray on 11/29/17 showed new right upper lobe consolidation -Will continue cefepime -Sputum cultures pending Qualifiers: Pneumonia type: due to unspecified organism Laterality: right Lung location: upper lobe of lung Qualified Code(s): J18.1 - Lobar pneumonia, unspecified organism (3) COPD with exacerbation Current Visit: Yes Status: Acute Assessment and plan: -Improving; suspect secondary to pneumonia. -Will continue IV Solu-Medrol in addition to IV cefepime -Pulmonology consulted and appreciate recommendations (4) Cavitary lesion of lung Current Visit: Yes Status: Acute Assessment and plan: -CT of the chest showed 6 mm cavitary lesion right upper lobe and patchy bilateral ground-glass opacities. 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 status Qualified Code(s): E11.59 - Type 2 diabetes mellitus with other circulatory complications (7) Essential (primary) hypertension Current Visit: No Status: Chronic Assessment and plan: -Controlled; continue Cardizem (8) Atrial fibrillation with RVR Current Visit: Yes Status: Acute Assessment and plan: -Right now controlled; patient weaned off Cardizem drip and currently on beta ignacia -cardiology consulted and appreciate recommendations (9) DVT prophylaxis Current Visit: Yes Status: Acute Assessment and plan: Subcutaneous heparin - Subjective Interval history: Patient with sepsis which is improving; unclear etiology She continues to have improvement improvement in shortness of breath but still requires oxygenation. She has been afebrile but not much improvement in leukocytosis Chest x-ray on 11/29/17 showed new right upper lobe consolidation - Constitutional Vitals: Temp Pulse Resp BP Pulse Ox 97.6 F 87 16 116/67 96 12/04/17 15:55 12/04/17 15:55 12/04/17 15:55 12/04/17 15:55 12/04/17 15:55 General appearance: Present: mild distress, A&O X 3, no acute distress - Respiratory Respiratory exam: Present: rhonchi, wheezes. Absent: accessory muscle use, tachypnea - Cardiovascular Cardiovascular exam: Present: RRR, +S1, +S2. Absent: diastolic murmur, gallop, rubs, systolic murmur Internal Medicine: Result - Labs CBC & Chem 7: 12/04/17 10:35 12/04/17 10:35 Labs: Short CBC 12/04/17 Range/Units 10:35 WBC 20.4 H (4.3-11.1) K/mcL Hgb 9.7 L (11.5-15.4) g/dL Hct 32.5 L (35.3-44.9) % Plt Count 335 (140-400) K/mcL Neutrophils # 18.4 H (1.6-8.9) K/mcL BMP 12/04/17 10:35 Sodium 130 L Potassium 4.5 Chloride 97 L Carbon Dioxide 25 BUN 37 H Creatinine 0.99 Glucose 432 H Calcium 10.1 - ABG Interpretation ABG results: ABG ABG pH 7.53 pH Units (7.32-7.45) H 11/29/17 15:25 ABG pCO2 34 mmHg (35-45) L 11/29/17 15:25 ABG pO2 155 mmHg (85-104) H D 11/29/17 15:25 ABG O2 Saturation 100 % (95-98) H 11/29/17 15:25 PT/INR, D-dimer PT 29.0 Seconds (9.4-12.1) H 12/04/17 04:52 D-Dimer 1713 ng/mLFEU (0-500) H 11/27/17 22:16 Consult Discharge Plan - Plan Referrals: Dar Bailon MD [Primary Care Provider] - 12/05/17 3:00 pm (Please follow up as schedule...)
[2017-12-04] MEDS ORDERED: *HR* Warfarin 3 MG TABLET PO ONE (18:00)
[2017-12-05] MEDS: MethylPREDNISolone 40 MG/ML VIAL IVP SCH ×2 (00:18→07:47)
[2017-12-05] MEDS: Levalbuterol Neb 1.25 MG/3 ML IH SCH ×4 (03:53→22:28)
[2017-12-05 06:11] LABS: INR 2.7; Prothrombin Time 29.9 Seconds (9.4-12.1)
[2017-12-05] MEDS: Cefepime HCl 2,000 MG in Water for inj. (sterile) 20 ML 20 ML IVP SCH (07:53)
[2017-12-05] MEDS: Diltiazem CD (24hr) 180 MG CAPSULE PO SCH (07:53)
[2017-12-05] MEDS: Insulin LISPRO 300 UNITS/3 ML VIAL SQ SCH ×4 (07:57→21:18)
--- NOTE | 2017-12-05 08:58 | Internal Med Progress Note ---
Date of Encounter: 12/05/17 Time of Encounter: 11:20 - Assessment and plan (1) Acute respiratory failure with hypoxia Current Visit: Yes Status: Acute Assessment and plan: Continue O2 supplementation. Wean FiO2 as tolerated. Evaluate for home oxygen needs. (2) COPD with exacerbation Current Visit: Yes Status: Acute Assessment and plan: Clinically getting better. Will taper steroids. Continue bronchodilators and O2 supplementation (3) Cavitary lesion of lung Current Visit: Yes Status: Acute Assessment and plan: Etiology uncertain. Follow up with pulmonology as outpatient. (4) Pneumonia Current Visit: Yes Status: Acute Assessment and plan: Chest x-ray done yesterday showed nearly resolved infiltrates in the lower right lung and left base. Infectious disease following. Will de-escalate antibiotics to levofloxacin. Qualifiers: Pneumonia type: due to unspecified organism Laterality: right Lung location: upper lobe of lung Qualified Code(s): J18.1 - Lobar pneumonia, unspecified organism (5) Diabetes mellitus Current Visit: Yes Status: Chronic Assessment and plan: Blood glucose levels remain elevated. Will place patient on long-acting insulin. Continue sliding scale coverage. 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 (7) DVT prophylaxis Current Visit: Yes Status: Acute Assessment and plan: On Coumadin. INR therapeutic - Subjective Interval history: Patient is feeling much better today. Denies any new complaints. No nausea or vomiting. No dizziness or lightheadedness. No palpitations. - Constitutional Vitals: Temp Pulse Resp BP Pulse Ox 97.5 F L 92 18 110/57 92 12/05/17 06:54 12/05/17 06:54 12/05/17 06:54 12/05/17 06:54 12/05/17 06:54 General appearance: Present: A&O X 3, no acute distress, answers questions appropriately - Neck Neck exam general surgery: Present: supple, trachea midline. Absent: lymphadenopathy - Respiratory Respiratory exam: Present: CTAB. Absent: accessory muscle use, rales, rhonchi, wheezes - Cardiovascular Cardiovascular exam: Present: RRR, +S1, +S2. Absent: diastolic murmur, gallop, rubs, systolic murmur - GI/Abdominal GI/Abdominal exam: Present: normal bowel sounds, soft, no peritoneal signs. Absent: distended, tenderness - Neurological Exam Neurological exam: Present: alert, CN II-XII intact, oriented X3, no focal deficits. Absent: facial droop, speech deficit Internal Medicine: Result - Labs CBC & Chem 7: 12/05/17 09:56 12/04/17 10:35 Labs: Short CBC 12/04/17 Range/Units 10:35 WBC 20.4 H (4.3-11.1) K/mcL Hgb 9.7 L (11.5-15.4) g/dL Hct 32.5 L (35.3-44.9) % Plt Count 335 (140-400) K/mcL Neutrophils # 18.4 H (1.6-8.9) K/mcL BMP 12/04/17 10:35 Sodium 130 L Potassium 4.5 Chloride 97 L Carbon Dioxide 25 BUN 37 H Creatinine 0.99 Glucose 432 H Calcium 10.1 - ABG Interpretation ABG results: ABG ABG pH 7.53 pH Units (7.32-7.45) H 11/29/17 15:25 ABG pCO2 34 mmHg (35-45) L 11/29/17 15:25 ABG pO2 155 mmHg (85-104) H D 11/29/17 15:25 ABG O2 Saturation 100 % (95-98) H 11/29/17 15:25 PT/INR, D-dimer PT 29.9 Seconds (9.4-12.1) H 12/05/17 05:51 D-Dimer 1713 ng/mLFEU (0-500) H 11/27/17 22:16 - Impressions Impressions Chest X-Ray 12/04/17 18:27 IMPRESSION: 1. Nearly resolved but persistent infiltrates lower right lung and medial left lung base. Much improved pneumatization compared to previous study. 2. Cardiac silhouette appears within normal limits for size. 3. Calcific atherosclerotic disease aorta. 4. Right and left hilar silhouettes appear unremarkable. 5. Blunting left lateral costophrenic sulcus in keeping with pleural effusion. 6. Unchanged pacemaker. D/ / Yoseph Boswell / Yoseph Boswell Interpreting Provider: Yoseph Boswell Consult Discharge Plan - Plan Referrals: Dar Bailon MD [Primary Care Provider] - 12/05/17 3:00 pm (Please follow up as schedule...)
--- NOTE | 2017-12-05 09:45 | Infectious Disease Progress No ---
Date of Encounter: 12/05/17 Time of Encounter: 08:10 - Assessment and Plan (1) Sepsis Current Visit: Yes Status: Acute Currently has 2 SIRS criteria with continued tachycardia and leukocytosis CXR 11/29 showed new upper right lobe consolidation Strep pneumo and legionella antigens negative blood cultures 11/17 on 11/28 negative Flu A and B negative Current causative organism unclear Qualifiers: Sepsis type: sepsis due to unspecified organism Qualified Code(s): A41.9 - Sepsis, unspecified organism (2) Pneumonia Current Visit: Yes Status: Acute CXR on 11/29 showed new upper right lobe infiltrate S. pneumo and legionella antigens negative Flu A & B antigens negative RIP negative CXR on 12/04 showed improvement in lung infiltrate Currently on day 7 of Cefepime Will consider de-escalation of antibiotics Obtain sputum culture, if possible Consider deescalation to PO levaquin or ormnicef upon discharge Qualifiers: Pneumonia type: due to unspecified organism Laterality: right Lung location: upper lobe of lung Qualified Code(s): J18.1 - Lobar pneumonia, unspecified organism (3) Cavitary lesion of lung Current Visit: Yes Status: Acute Single cavitary lesion seen on CTA on 11/27 6mm in diameter, thick wall and without surrounding infection/inflammation Consider non-infectious etiologies for lesion Though, fungal causes and non-tuberculus mycobacterium are on the differential Given the clinical picture, recommend treating conservatively CXR on 12/04 does show interval improvement in lower right lung infiltrates Agree with pulmonology for follow up CT in 6-8 weeks - Subjective Interval history: Patient reports that she feels somewhat better than she did previously. She continues to deny having fevers, chills, or diaphoresis. She reports continued conversational dyspnea, but reports that this is similar to her baseline. She also feels as though she is having improvement in her cough. She continues to be afebrile with HR around 90, not tachypnic, but having desaturations during conversation. WBC is improving, but is still elevated today. Infect Dis PN-Objective Data - Labs CBC & Chem 7: 12/05/17 09:56 12/04/17 10:35 Labs: Laboratory Results - last 24 hr 12/03/17 12/03/17 12/04/17 07:53 17:01 10:35 WBC 20.4 H RBC 4.14 Hgb 9.7 L Hct 32.5 L MCV 78.5 L MCH 23.4 L MCHC 29.8 L RDW 18.0 H Plt Count 335 MPV 10.7 Immature Gran % 4.6 H Seg Neutrophils % 89.9 Lymphocytes % 3.4 Monocytes % 1.9 Eosinophils % 0.0 Basophils % 0.2 Neutrophils # 18.4 H Lymphocytes # 0.7 Monocytes # 0.4 Eosinophils # 0.0 Basophils # 0.1 Nucleated RBCs/100 WBC 0.2 H PT INR Sodium Potassium Chloride Carbon Dioxide BUN Creatinine Est GFR ( Amer) Est GFR (Non-Af Amer) BUN/Creatinine Ratio Glucose POC Glucose 414 H* 281 H Calculated Osmolality Calcium 12/04/17 12/04/17 12/04/17 10:35 12:05 15:58 WBC RBC Hgb Hct MCV MCH MCHC RDW Plt Count MPV Immature Gran % Seg Neutrophils % Lymphocytes % Monocytes % Eosinophils % Basophils % Neutrophils # Lymphocytes # Monocytes # Eosinophils # Basophils # Nucleated RBCs/100 WBC PT INR Sodium 130 L Potassium 4.5 Chloride 97 L Carbon Dioxide 25 BUN 37 H Creatinine 0.99 Est GFR ( Amer) > 60 Est GFR (Non-Af Amer) 53 L BUN/Creatinine Ratio 37 H Glucose 432 H POC Glucose 361 H 293 H Calculated Osmolality 297 Calcium 10.1 12/04/17 12/05/17 20:55 05:51 WBC RBC Hgb Hct MCV MCH MCHC RDW Plt Count MPV Immature Gran % Seg Neutrophils % Lymphocytes % Monocytes % Eosinophils % Basophils % Neutrophils # Lymphocytes # Monocytes # Eosinophils # Basophils # Nucleated RBCs/100 WBC PT 29.9 H INR 2.7 Sodium Potassium Chloride Carbon Dioxide BUN Creatinine Est GFR ( Amer) Est GFR (Non-Af Amer) BUN/Creatinine Ratio Glucose POC Glucose 317 H Calculated Osmolality Calcium Cultures: Cultures 11/30/17 23:00 Legionella Antigen - Final Urine,Clean Catch Streptococcus pneumoniae Antigen (M - Final Serology 12/02/17 Range/Units 18:29 Chlamy pneumoniae PCR Not Detected (Not Detect) Adenovirus (PCR) Not Detected (Not Detect) B. pertussis DNA (PCR) Not Detected (Not Detect) B.parapertussis DNA PCR Not Detected (Not Detect) Coronavirus OC43 (PCR) Not Detected (Not Detect) Coronavirus HKU1 (PCR) Not Detected (Not Detect) Coronavirus 229E (PCR) Not Detected (Not Detect) Coronavirus NL63 (PCR) Not Detected (Not Detect) Human Metapneumovir PCR Not Detected (Not Detect) Influenza A (H1) PCR Not Detected (Not Detect) Influ A (H1N1/09) PCR Not Detected (Not Detect) Influenza A (H3) PCR Not Detected (Not Detect) Influenza A Untype (PCR) Not Detected (Not Detect) Influenza Type B (PCR) Not Detected (Not Detect) M.pneumoniae DNA (PCR) Not Detected (Not Detect) Parainfluenza 1 (PCR) Not Detected (Not Detect) Parainfluenza 2 (PCR) Not Detected (Not Detect) Parainfluenza 3 (PCR) Not Detected (Not Detect) Parainfluenza 4 (PCR) Not Detected (Not Detect) RSV (PCR) Not Detected (Not Detect) Entero/Rhino (PCR) Not Detected (Not Detect) - Impressions Impressions Chest X-Ray 12/04/17 18:27 IMPRESSION: 1. Nearly resolved but persistent infiltrates lower right lung and medial left lung base. Much improved pneumatization compared to previous study. 2. Cardiac silhouette appears within normal limits for size. 3. Calcific atherosclerotic disease aorta. 4. Right and left hilar silhouettes appear unremarkable. 5. Blunting left lateral costophrenic sulcus in keeping with pleural effusion. 6. Unchanged pacemaker. D/ / Yoseph Boswell / Yoseph Boswell Interpreting Provider: Yoseph Boswell Exam - Constitutional Vitals: Temp Pulse Resp BP Pulse Ox 97.5 F L 88 20 110/57 96 12/05/17 06:54 12/05/17 09:31 12/05/17 09:31 12/05/17 06:54 12/05/17 09:31 - Additional findings Additional findings: General: Cooperative, pleasant, no acute distress, alert and oriented 3, answers questions appropriately, oxygen saturations present with conversation HEENT: Normocephalic, atraumatic, trachea midline, Conjunctiva pink, sclera anicteric, oral mucosa moist Respiratory: No accessory muscle usage, slight, diffuse wheezing present on exam Cardiovascular: Irregular, S1 and S2 present, no murmurs/rubs/gallops/clicks appreciated GI/abdominal: Nondistended, nontender, soft, normal bowel sounds, no peritoneal signs Extremities: no pedal edema appreciated, warm, lower extremity pulses palpable and symmetrical Neurological: Alert and oriented 3, no facial droop, no focal deficits Skin: Dry, intact, normal color Consult Discharge Plan - Plan Referrals: Dar Bailon MD [Primary Care Provider] - 12/05/17 3:00 pm (Please follow up as schedule...) - Attending Attestation I examined this patient and my medical decision-making was reviewed with the Resident Physician. I agree with the documented findings, disposition and treatment plan as described except to the extent set forth below.
[2017-12-05 10:03] LABS: Basophils % 0.1 %; Hematocrit 30.9 % (35.3-44.9); Hemoglobin 9.2 g/dL (11.5-15.4); Immature Granulocytes % 3.8 % (0-4); Lymphocytes # 0.5 K/mcL (0.6-4.6); Lymphocytes % 3.1 %; Mean Corpuscular HGB Conc 29.8 g/dL (31.6-35.5); Mean Corpuscular Hemoglobin 23.2 pg (28.0-33.3); Mean Platelet Volume 10.4 fL (9.4-12.4); Monocytes # 0.3 K/mcL (0.0-1.3); Monocytes % 1.6 %; Nucleated Red Blood Cells 0.3 /100 WBC (0); Platelet Count 306 K/mcL (140-400); Red Blood Count 3.96 M/mcL (3.82-4.97); Red Cell Distribution Width 18.3 % (11.5-14.5); Segmented Neutrophils % 91.4 %
[2017-12-05] MEDS: Acetylcysteine 10% 2 ML INHSOL IH SCH ×3 (11:25→22:28)
[2017-12-05] MEDS: Budesonide/Formoterol 160/4.5 MDI IH SCH ×2 (11:25→22:28)
[2017-12-05] MEDS: Cholecalciferol (D-3) 1,000 UNIT TABLET PO SCH (11:53)
[2017-12-05] MEDS: Isosorbide MONOnitrate (24 HR) 30 MG TAB.ER.24H PO SCH (11:53)
[2017-12-05] MEDS: predniSONE 20 MG TABLET PO SCH (17:07)
[2017-12-05] MEDS ORDERED: levoFLOXacin 750 MG TABLET PO SCH (18:00)
[2017-12-05] MEDS ORDERED: *HR* Warfarin 2.5 MG TABLET PO ONE (18:00)
[2017-12-05] MEDS: Insulin DETEMIR 100 UNIT/ML X5UNITS SQ SCH (21:18)
[2017-12-05] MEDS: Nystatin SUSP 5 ML UD.LIQ PO SCH (21:19)
[2017-12-06] MEDS: Levalbuterol Neb 1.25 MG/3 ML IH SCH ×2 (04:20→10:27)
[2017-12-06 07:20] LABS: INR 2.7; Prothrombin Time 29.9 Seconds (9.4-12.1)
[2017-12-06] MEDS: Insulin LISPRO 300 UNITS/3 ML VIAL SQ SCH ×2 (09:19→12:09)
[2017-12-06] MEDS: Insulin DETEMIR 100 UNIT/ML X5UNITS SQ SCH (09:20)
[2017-12-06] MEDS: Nystatin SUSP 5 ML UD.LIQ PO SCH ×2 (09:20→12:09)
[2017-12-06] MEDS: Diltiazem CD (24hr) 180 MG CAPSULE PO SCH (09:24)
[2017-12-06] MEDS: predniSONE 20 MG TABLET PO SCH (09:24)
[2017-12-06] MEDS: Budesonide/Formoterol 160/4.5 MDI IH SCH (10:27)
[2017-12-06] MEDS: Acetylcysteine 10% 2 ML INHSOL IH SCH (10:27)
[2017-12-06 11:25] VITALS: BP 120/60
[2017-12-06] MEDS: Cholecalciferol (D-3) 1,000 UNIT TABLET PO SCH (12:09)
[2017-12-06] MEDS: Isosorbide MONOnitrate (24 HR) 30 MG TAB.ER.24H PO SCH (12:09)
--- NOTE | 2017-12-06 13:54 | Discharge Summary ---
Orders not resulted at time of discharge: Pending orders 11/29/17 12:09 Sputum Culture [Culture,Sputum with Gram Stain] [] Stat 12/07/17 04:00 PT/INR [Prothrombin Time INR] [COAG] AM 0400 12/08/17 04:00 PT/INR [Prothrombin Time INR] [COAG] AM 0400 12/09/17 04:00 PT/INR [Prothrombin Time INR] [COAG] AM 0400 Date of Encounter: 12/06/17 Time of Encounter: 10:50 - Discharge Diagnosis (1) Acute respiratory failure with hypoxia Priority: Primary Status: Acute (2) COPD with exacerbation Priority: Secondary Status: Acute (3) Cavitary lesion of lung Priority: Secondary Status: Acute (4) Pneumonia Priority: Secondary Status: Acute Qualifiers: Pneumonia type: due to unspecified organism Laterality: right Lung location: upper lobe of lung Qualified Code(s): J18.1 - Lobar pneumonia, unspecified organism (5) Diabetes mellitus Priority: Secondary Status: Chronic Qualifiers: Diabetes mellitus type: type 2 Diabetes mellitus complication status: with circulatory complication Diabetes mellitus complication detail: with other circulatory complications 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 Mejía is a 87 year old female patient with a history of COPD, hypertension , diabetes, atrial fibrillation, coronary artery disease was hospitalized here for acute COPD exacerbation and pneumonia along with a cavitary lesion in the right upper lobe measuring 6 mm in size. Pulmonology was consulted for this. They recommended repeating CT scan of the chest in 6-8 weeks. Patient was treated with IV antibiotics and IV steroids. Her condition has improved slowly. Her leukocytosis has persisted despite IV antibiotics and so infectious disease was consulted. Blood cultures have been negative. No other clear cause of infection has been identified. Sputum culture was repeated yesterday and it is growing staph aureus that is possibly MRSA. As such patient has now been placed on Zyvox which she will continue to take at home. Repeat chest x-ray done 2 days back showed clearing infiltrates. Her WBC count did improve to 16.4 yesterday. Clinically she is doing much better and is stable for discharge. She does have COPD and has been hypoxic requiring O2 supplementation. She would benefit from home oxygen to be used continuously. A face to face examination was completed today. She will also be discharged with a steroid taper. Her blood sugars have been elevated during her stay here and as such I am also discharging her on insulin to be taken while she is on steroids. Also increased her dose of metformin that she uses at home [id number] mg daily. Discharge discussed with: patient - Time Spent with Patient Total time spent providing and/or coordinating discharge services: Greater than 30 minutes (45 min) - Discharge Medications Prescriptions: Budesonide/Formoterol 160/4.5 [Symbicort 160/4.5] 2 puff IH BIDRESP #1 inhaler Diltiazem CD (24hr) [Cardizem CD] 360 mg PO DAILY #60 cap.er.24h Insulin Glargine,Hum.rec.anlog [Lantus Solostar] 15 unit SQ DAILY #1 insuln.pen Linezolid [Zyvox] 600 mg PO BID #13 tablet Metformin HCl [Metformin HCl ER] 1,000 mg PO DAILY #60 [id number] Metoprolol [Lopressor] 25 mg PO BID #60 tablet predniSONE [PredniSONE] 10 mg PO BID 20 Days tablet Home Medications: Biotin 10 mg PO 1300 08/20/15 [History] Cholecalciferol (Vitamin D3) [Vitamin D3] 2,000 unit PO 1300 08/20/15 [History] Cinnamon Bark [Cinnamon] 4,000 mg PO 1300 08/20/15 [History] Furosemide [Lasix] 40 mg PO BID 08/20/15 [History] GlipiZIDE XL (24 HR) [Glucotrol XL] 5 mg PO BID 08/20/15 [History] Isosorbide MONOnitrate (24 HR) [Imdur] 30 mg PO 1300 08/20/15 [History] Oxybutynin [Ditropan] 5 mg PO TID 08/20/15 [History] Simvastatin [Zocor] 20 mg PO HS 08/20/15 [History] Warfarin [Coumadin] 6 mg PO SUMOTUSA 08/20/15 [History] Acetaminophen [Tylenol] 1 - 2 tab PO Q6HR PRN #90 tablet 05/27/16 [Rx] Albuterol Sulfate [Albuterol Inhaler] 2 puff IH Q4HR PRN 05/27/16 [History] Calcium Polycarbophil [Fibercon] 1,250 mg PO 1800 05/27/16 [History] Cyanocobalamin (Vitamin B-12) [Vitamin B-12] 1,000 mcg SL 1300 05/27/16 [History ] Warfarin [Coumadin] 3 mg PO WETHFR 05/27/16 [History] Budesonide/Formoterol 160/4.5 [Symbicort 160/4.5] 2 puff IH BIDRESP #1 inhaler 12/06/17 [Rx] Diltiazem CD (24hr) [Cardizem CD] 360 mg PO DAILY #60 cap.er.24h 12/06/17 [Rx] Insulin Glargine,Hum.rec.anlog [Lantus Solostar] 15 unit SQ DAILY #1 insuln.pen 12/06/17 [Rx] Linezolid [Zyvox] 600 mg PO BID #13 tablet 12/06/17 [Rx] Metformin HCl [Metformin HCl ER] 1,000 mg PO DAILY #60 [id number] 12/06/17 [Rx] Metoprolol [Lopressor] 25 mg PO BID #60 tablet 12/06/17 [Rx] predniSONE [PredniSONE] 10 mg PO BID 20 Days tablet 12/06/17 [Rx] Allergies/Adverse Reactions: 3 Allergy/AdvReac Type Severity Reaction Status Date / Time doxycycline Allergy Rash Verified 11/27/17 18:03 Oxycodone Allergy Hives Verified 11/27/17 18:03 propoxyphene Allergy Hives Verified 11/27/17 18:03 [From Gerald-N] codeine AdvReac SHAKES Verified 11/28/17 07:19 Penicillins AdvReac Hives Verified 11/27/17 18:03 Sulfa (Sulfonamide AdvReac Shakiness Verified 11/27/17 18:03 Antibiotics) Date of admission: 11/28/17 03:14 Primary care physician: Dar Bailon MD Consults: 11/29/17 16:58 Consult to Infectious Diseases [CONS] Routine Consulting Provider: Infectious Disease Kiesha Reason for Consult: Fever with leukocytosis in addition to cavitary lesion on CT chest Call Completed: No 12/01/17 09:35 Consult to Cardiology [CONS] Routine Comment: Consulting Provider: Cardiology Kiesha Reason for Consult: afib rvr Time Notified: 09:40 Call Completed: Yes 12/05/17 08:56 Consult to Occupational Therapy [CONS] Routine Comment: Evaluate, develop and implement POC Reason for Consult: Evaluate for safe discharge plan Consult to Physical Therapy [CONS] Routine Comment: Evaluate, develop and implement POC Reason for Consult: Evaluate for safe discharge plan Discharging clinician: Himanshu Lance Anticipated date of discharge: 12/06/17 - Constitutional Vitals: Temp Pulse Resp BP Pulse Ox 97.7 F 93 14 120/60 93 12/06/17 11:23 12/06/17 11:23 12/06/17 11:23 12/06/17 11:23 12/06/17 12:21 General appearance: Present: cooperative, A&O X 3, no acute distress, answers questions appropriately - Neck Neck exam general surgery: Present: supple, trachea midline. Absent: lymphadenopathy - Respiratory Respiratory exam: Present: prolonged expiratory phase. Absent: accessory muscle use, rales, rhonchi, wheezes - Cardiovascular Cardiovascular exam: Present: RRR, +S1, +S2. Absent: diastolic murmur, gallop, rubs, systolic murmur - GI/Abdominal GI/Abdominal exam: Present: normal bowel sounds, soft, no peritoneal signs. Absent: distended, tenderness - Patient Status Disposition: Home Health Service Condition: Good Functional capacity at discharge: uses cane/walker Overall status at discharge: patient is progressing back to baseline - Ambulatory Orders Ambulatory Orders: CT chest w con [CT] Time Frame: 6 Weeks, Facility: [facility] , Location: Radiology - Discharge Instructions Instructions: Atrial Fibrillation (DC), Acute Respiratory Distress Syndrome (DC ), Diabetes Mellitus Type 2 in Adults (DC), Chronic Obstructive Pulmonary Disease (DC), Chronic Hypertension (DC) Follow Up With: Dar Bailon MD [Primary Care Provider] - 12/12/17 2:00 pm (Please follow up as schedule...) Additional Instructions: Follow up with coumadin clinc to monitor INR - Diet and Activity Activity: increase activity as tolerated, wear oxygen at all times Diet: diabetic diet, low fat, low cholesterol, low salt diet
[2017-12-06] MEDS ORDERED: Insulin LISPRO 300 UNITS/3 ML VIAL SQ SCH (14:00)
--- NOTE | 2017-12-06 14:13 | Physician Discharge Referral ---
Home Health/Hosp Referral Info Transfer to: Home Health Provider in Charge Post Discharge: PCP - Diagnosis (1) Acute respiratory failure with hypoxia Priority: Primary Status: Acute (2) COPD with exacerbation Priority: Secondary Status: Acute (3) Cavitary lesion of lung Priority: Secondary Status: Acute (4) Pneumonia Priority: Secondary Status: Acute (5) Diabetes mellitus Priority: Secondary Status: Chronic (6) Essential (primary) hypertension Priority: Secondary Status: Chronic (7) DVT prophylaxis Priority: Secondary Status: Acute - Respiratory Orders Oxygen / L per min (2) Smoking Cessation: Smoking cessation has been advised. For more information, call the [place] Tobacco Quit Line at 9-652-ZMWJ-NOW. - Diet/Nutrition Diet/Nutrition Orders: Cardiac - Activity Activity Orders: Walker - Services Needed Following services are medically necessary services: Nursing, Home Health Aide, Physical Therapy, Occupational Therapy - Transfer Medications Prescriptions: Budesonide/Formoterol 160/4.5 [Symbicort 160/4.5] 2 puff IH BIDRESP #1 inhaler Diltiazem CD (24hr) [Cardizem CD] 360 mg PO DAILY #60 cap.er.24h Linezolid [Zyvox] 600 mg PO BID #13 tablet Metformin HCl [Metformin HCl ER] 1,000 mg PO DAILY #60 [id number] Metoprolol [Lopressor] 25 mg PO BID #60 tablet Home Medications: Biotin 10 mg PO 1300 08/20/15 [History] Cholecalciferol (Vitamin D3) [Vitamin D3] 2,000 unit PO 1300 08/20/15 [History] Cinnamon Bark [Cinnamon] 4,000 mg PO 1300 08/20/15 [History] Furosemide [Lasix] 40 mg PO BID 08/20/15 [History] GlipiZIDE XL (24 HR) [Glucotrol XL] 5 mg PO BID 08/20/15 [History] Isosorbide MONOnitrate (24 HR) [Imdur] 30 mg PO 1300 08/20/15 [History] Oxybutynin [Ditropan] 5 mg PO TID 08/20/15 [History] Simvastatin [Zocor] 20 mg PO HS 08/20/15 [History] Warfarin [Coumadin] 6 mg PO SUMOTUSA 08/20/15 [History] Acetaminophen [Tylenol] 1 - 2 tab PO Q6HR PRN #90 tablet 08/12/16 [Rx] Albuterol Sulfate [Albuterol Inhaler] 2 puff IH Q4HR PRN 05/27/16 [History] Calcium Polycarbophil [Fibercon] 1,250 mg PO 1800 05/27/16 [History] Cyanocobalamin (Vitamin B-12) [Vitamin B-12] 1,000 mcg SL 1300 05/27/16 [History ] Warfarin [Coumadin] 3 mg PO WETHFR 05/27/16 [History] Budesonide/Formoterol 160/4.5 [Symbicort 160/4.5] 2 puff IH BIDRESP #1 inhaler 12/06/17 [Rx] Diltiazem CD (24hr) [Cardizem CD] 360 mg PO DAILY #60 cap.er.24h 12/06/17 [Rx] Linezolid [Zyvox] 600 mg PO BID #13 tablet 12/06/17 [Rx] Metformin HCl [Metformin HCl ER] 1,000 mg PO DAILY #60 [id number] 12/06/17 [Rx] Metoprolol [Lopressor] 25 mg PO BID #60 tablet 12/06/17 [Rx] Allergies/Adverse Reactions: 3 Allergy/AdvReac Type Severity Reaction Status Date / Time doxycycline Allergy Rash Verified 11/27/17 18:03 Oxycodone Allergy Hives Verified 11/27/17 18:03 propoxyphene Allergy Hives Verified 11/27/17 18:03 [From Darvocet-N] codeine AdvReac SHAKES Verified 11/28/17 07:19 Penicillins AdvReac Hives Verified 11/27/17 18:03 Sulfa (Sulfonamide AdvReac Shakiness Verified 11/27/17 18:03 Antibiotics) Certification: Further, I certify that my clinical findings support that this patient is homebound (i.e. absences from home require considerable and taxing effort and are for medical reasons or uatsdin services or infrequently or short duration when for other reasons) because: Homebound Reason: Patient requires assistance of a person or device to safely leave home Attestation: My signature below is to certify that this patient is under my care and that I, or nurse practitioner, or a physician's assistant property manager working with me, has a face-to -face encounter with this patient.
[2017-12-06] MEDS ORDERED: *HR* Warfarin 3 MG TABLET PO ONE (18:00)
[2017-12-07] MEDS ORDERED: Linezolid 600 MG TABLET PO SCH (09:00)
== END 2017-12-06 15:56 | disposition home health service (06) | DRG 193 ==
LOC: EMEROO 17:42 → 2ANU 17:42 → SUATTDRO 11-28 03:14
PROVIDERS: ADMIT Internal Medicine; ATTEND Internal Medicine